=== PATIENT | female | born 1945 | race Caucasian/White ===

== ENCOUNTER 2022-01-28 05:31 | Observation (INO) | payer MEDICARE ==
[2022-01-28] MEDS ORDERED: Zofran 4 MG/2 ML VIAL IV ONE (05:55)
[2022-01-28] MEDS ORDERED: Sodium Chloride 0.9% 1000 ML 1,000 ML IV STA ×2 (05:55→06:30)
[2022-01-28] MEDS ORDERED: Sodium Chloride 0.9% 1000 ML 1,000 ML ONE ×2 (05:56→07:24)
[2022-01-28] MEDS ORDERED: Zofran 4 MG/2 ML VIAL ONE (05:56)
--- NOTE | 2022-01-28 06:07 | ERPHSYRPT ---
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 Indicates that the N/V has become worse through the night and now "I am dry heaving." C/O stomach cramping. Triage Nursing Assessment: Patient brought back to the ED in a wheelchair accompanied by her son. She is alert and oriented and answering questions appropriately. Bowel sounds present. No vomiting during assessment but patient was belching. Timing/Duration: yesterday Severity: moderate Modifying Factors: Improves With: movement Associated Symptoms: nausea, vomiting, abdominal pain, headaches, malaise Hx Tetanus, Diphtheria Vaccination/Date Given: Yes Hx Influenza Vaccination/Date Given: No (Last season) Hx Pneumococcal Vaccination/Date Given: Yes (12/01/11) Immunizations Up to Date: Yes <YAHIR DILL - Last Filed: 01/28/22 06:55> <CASANDRA MARTINEZ - Last Filed: 01/28/22 08:18> - History of Present Illness Time Seen by Provider: 01/28/22 06:03 Physician History: pt has N/V with lower abd pain - also myalgias and headache and dizziness like fainting not vertigo. no neuro deficits. abd without specific peritoneal signs or tenderness. ext with full ROM no increased pain. remote hx pancreatitis about 10 years ago and had ERCP - GB is out and does not drink ETOH. (YAHIR DILL) Allergies/Adverse Reactions: cefaclor [From Ceclor] Allergy (Unknown, Verified 01/28/22 05:33) swelling,rash amoxicillin [Amoxicillin] Allergy (Verified 01/28/22 05:33) swelling,rash Home Medications: Amitriptyline HCl 25 mg [Elavil 25 mg] 25 mg PO DAILY 06/09/12 [History] Duloxetine HCl [Cymbalta] 60 mg PO DAILY 06/09/12 [History] Pravastatin Sodium [Pravachol 20 MG] 20 mg PO DAILY 06/09/12 [History] Clopidogrel Bisulfate [PLAVIX 75 MG Tablet] 1 tab PO DAILY 09/13/14 [History] Dexlansoprazole [Dexilant] 1 tab PO DAILY 09/13/14 [History] Metoprolol Tartrate 25 mg [Lopressor 25MG Tab] 1 tab PO DAILY 09/13/14 [History] Nitroglycerin 0.4 mg (Ed) [Nitrostat 0.4 MG (ED)] 0.4 mg SL Q5MIN PRN MR X 3 PRN 12/05/20 [History] Ezetimibe 10 mg [Zetia 10 MG] 1 tab PO DAILY 01/28/22 [History] Travel Risk - International Travel Have you traveled outside of the country in past 3 weeks: No - Coronavirus Screening Are you exhibiting any of the following symptoms?: Yes Symptoms: Vomiting/Diarrhea, Headaches/Body Aches/Fatigue Close contact with a COVID-19 positive Pt in past 14-21 Days: No - Vaccine Status Have you recieved a Covid-19 vaccination: Yes 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 - Vaccination Dates Date of 2cond Vaccination (if applicable): 2020 <YAHIR DILL - Last Filed: 01/28/22 06:55> - Review of Systems Constitutional: No Fever, No Chills Eyes: No Symptoms Ears, Nose, & Throat: No Symptoms Respiratory: No Cough, No Dyspnea Cardiac: No Chest Pain, No Edema, No Syncope Abdominal/Gastrointestinal: Abdominal Pain, Nausea, Vomiting, No Diarrhea Genitourinary Symptoms: No Dysuria Musculoskeletal: No Back Pain, No Neck Pain, No Fall Skin: No Symptoms, No Rash Neurological: Dizziness, Headache, No Focal Weakness, No Sensory Changes Psychological: No Symptoms Endocrine: No Symptoms All Other Systems: Reviewed and Negative <YAHIR DILL - Last Filed: 01/28/22 06:55> - Past Medical History Pertinent Past Medical History: Yes Neurological History: No Pertinent History ENT History: No Pertinent History Cardiac History: High Cholesterol, Hypertension, Other Respiratory History: No Pertinent History Endocrine Medical History: No Pertinent History Musculoskeletal History: Fibromyalgia, Fractures GI Medical History: Esophageal Disorder, Hernia, Other History: No Pertinent History Psycho-Social History: Depression Female Reproductive Disorders: No Pertinent History Other Medical History: hiatal hernia. fractures: right wrist, shoulder, and ankle - Past Surgical History Past Surgical History: Yes Neuro Surgical History: No Pertinent History Cardiac: Cardiac Catheterization, Cardiac Stent Respiratory: No Pertinent History Gastrointestinal: Appendectomy, Cholecystectomy Genitourinary: No Pertinent History Musculoskeletal: Orthopedic Surgery Female Surgical History: Hysterectomy Other Surgical History: Right shoulder; rods and screws - Social History Smoking Status: Former smoker How long have you smoked: 15 Exposure to second hand smoke: No Drug Use: none Patient Lives Alone: No <YAHIR DILL Last Filed: 01/28/22 06:55> - Physical Exam General Appearance: no apparent distress, alert Eye Exam: PERRL/EOMI, eyes nml inspection Ears, Nose, Throat Exam: normal ENT inspection, TMs normal, pharynx normal, moist mucous membranes Neck Exam: normal inspection, non-tender, supple, full range of motion Respiratory Exam: normal breath sounds, lungs clear, No respiratory distress Cardiovascular Exam: regular rate/rhythm, normal heart sounds, normal peripheral pulses Gastrointestinal/Abdomen Exam: soft, normal bowel sounds, No tenderness, No mass Pelvic Exam: deferred Rectal Exam: deferred Back Exam: normal inspection, normal range of motion, No CVA tenderness, No vertebral tenderness Extremity Exam: normal inspection, normal range of motion, pelvis stable Neurologic Exam: alert, oriented x 3, cooperative, normal mood/affect, nml cerebellar function, nml station & gait, sensation nml, No motor deficits Skin Exam: normal color, warm, dry, No rash Lymphatic Exam: No adenopathy SpO2 Interpretation: normal SpO2: 99 O2 Delivery: Room Air <DILLJOSEFAYAHIR SAMUEL - Last Filed: 01/28/22 06:55> - Nursing Vital Signs Nursing Vital Signs: Initial Vital Signs Temperature 98 F 01/28/22 05:34 Pulse Rate 88 01/28/22 05:34 Respiratory Rate 20 01/28/22 05:34 Blood Pressure 129/69 01/28/22 05:34 O2 Sat by Pulse Oximetry 99 01/28/22 05:34 Pain Scale Pain Intensity 7 - Course Nursing assessment & vital signs reviewed: Yes EKG Interpreted by Me: Sinus Rhythm, Non-specific ST Changes, Other (ST depression) <YAHIR DILL - Last Filed: 01/28/22 06:55> Ordered Tests: Active Orders 24 hr Category Date Time Status EKG-ER Only STAT Care 01/28/22 06:08 Active IV Insertion STAT Care 01/28/22 06:08 Active ABDOMEN AND PELVIS W/0 CONTRAS [CT] Stat Exams 01/28/22 06:08 Completed HEAD WITHOUT CONTRAST [CT] Stat Exams 01/28/22 06:07 Completed AMYLASE Stat Lab 01/28/22 05:40 Completed CBC W DIFF Stat Lab 01/28/22 05:40 Completed CMP Stat Lab 01/28/22 05:40 Completed LIPASE Stat Lab 01/28/22 05:40 Completed Lactic Acid Stat Lab 01/28/22 06:28 Completed TROPONIN Q3H Lab 01/28/22 05:40 Completed TROPONIN Q3H Lab 01/28/22 09:15 Ordered TROPONIN Q3H Lab 01/28/22 12:15 Ordered TROPONIN Q3H Lab 01/28/22 15:15 Ordered TROPONIN Q3H Lab 01/28/22 18:15 Ordered UA W/RFX CULTURE Stat Lab 01/28/22 Ordered Medication Summary Discontinued Medications Generic Name Dose Route Start Last Admin Trade Name Freq PRN Reason Stop Dose Admin Diphenhydramine HCl Confirm 01/28/22 07:27 Diphenhydramine Hcl 50 Mg/Ml Vial Administered 01/28/22 07:28 Dose 50 mg .ROUTE .STK-MED ONE Diphenhydramine HCl 25 mg 01/28/22 07:29 01/28/22 07:30 Diphenhydramine Hcl 50 Mg/Ml Vial IV 01/28/22 07:30 25 mg STAT ONE Administration Famotidine 20 mg 01/28/22 06:08 01/28/22 06:17 Famotidine 20 Mg/1 Vial IV 01/28/22 06:09 20 mg STAT ONE Administration Famotidine Confirm 01/28/22 06:16 Famotidine 20 Mg/1 Vial Administered 01/28/22 06:17 Dose 20 mg IV .STK-MED ONE Sodium Chloride 1,000 mls @ 999 mls/hr 01/28/22 05:55 01/28/22 07:20 Sodium Chloride 0.9% 1000 Ml IV 01/28/22 06:55 Infused .Q1H1M STA Infusion Sodium Chloride Confirm 01/28/22 05:56 Sodium Chloride 0.9% 1000 Ml Administered 01/28/22 05:57 Dose 1,000 mls @ ud .ROUTE .STK-MED ONE Sodium Chloride 1,000 mls @ 999 mls/hr 01/28/22 06:30 01/28/22 07:31 Sodium Chloride 0.9% 1000 Ml IV 01/28/22 07:30 999 mls/hr .Q1H1M STA Administration Sodium Chloride Confirm 01/28/22 07:24 Sodium Chloride 0.9% 1000 Ml Administered 01/28/22 07:25 Dose 1,000 mls @ ud .ROUTE .STK-MED ONE Metoclopramide HCl Confirm 01/28/22 07:27 Metoclopramide Hcl 10 Mg/2 Ml Vial Administered 01/28/22 07:28 Dose 10 mg .ROUTE .STK-MED ONE Metoclopramide HCl 10 mg 01/28/22 07:29 01/28/22 07:30 Metoclopramide Hcl 10 Mg/2 Ml Vial IV 01/28/22 07:30 10 mg STAT ONE Administration Morphine Sulfate 4 mg 01/28/22 06:11 01/28/22 06:17 Morphine Sulfate 4 Mg/Ml Injection IV 01/28/22 06:12 4 mg STAT ONE Administration Morphine Sulfate Confirm 01/28/22 06:16 Morphine Sulfate 4 Mg/Ml Injection Administered 01/28/22 06:17 Dose 4 mg .ROUTE .STK-MED ONE Morphine Sulfate Confirm 01/28/22 07:24 Morphine Sulfate 4 Mg/Ml Injection Administered 01/28/22 07:25 Dose 4 mg .ROUTE .STK-MED ONE Ondansetron HCl 4 mg 01/28/22 05:55 01/28/22 05:56 Ondansetron Hcl 4 Mg/2 Ml Vial IV 01/28/22 05:56 4 mg STAT ONE Administration Ondansetron HCl Confirm 01/28/22 05:56 Ondansetron Hcl 4 Mg/2 Ml Vial Administered 01/28/22 05:57 Dose 4 mg .ROUTE .STK-MED ONE Pantoprazole Sodium 40 mg 01/28/22 06:08 01/28/22 06:17 Pantoprazole 40 Mg Vial IV 01/28/22 06:09 40 mg STAT ONE Administration Pantoprazole Sodium Confirm 01/28/22 06:16 Pantoprazole 40 Mg Vial Administered 01/28/22 06:17 Dose 40 mg IV .STK-MED ONE Lab/Rad Data: Laboratory Result Diagrams 01/28/22 05:40 01/28/22 05:40 Laboratory Results 01/28/22 01/28/22 01/28/22 Range/Units 06:28 06:20 05:40 WBC (4.0-10.5) x10^3/uL RBC (4.1-5.4) x10^6/uL Hgb (12.0-16.0) g/dL Hct (35-47) % MCV (78-100) fL MCH (26-32) pg MCHC (32-36) g/dL RDW (11.5-14.0) % Plt Count (150-450) x10^3/uL MPV (7.5-11.0) fL Gran % (36.0-66.0) % Immature Gran % (Auto) (0.00-0.4) % Nucleat RBC Rel Count (0.00-0.1) % Eos # (Auto) (0-0.5) x10^3/uL Immature Gran # (Auto) (0.00-0.03) x10^3u/L Absolute Lymphs (auto) (1.0-4.6) x10^3/uL Absolute Monos (auto) (0.0-1.3) x10^3/uL Absolute Nucleated RBC (0.00-0.01) x10^3u/L Lymphocytes % (24.0-44.0) % Monocytes % (0.0-12.0) % Eosinophils % (0.00-5.0) % Basophils % (0.0-0.4) % Absolute Granulocytes (1.4-6.9) x10^3/uL Basophils # (0-0.4) x10^3/uL Sodium (137-145) mmol/L Potassium (3.5-5.1) mmol/L Chloride (98-107) mmol/L Carbon Dioxide (22-30) mmol/L Anion Gap (5-15) MEQ/L BUN (7-17) mg/dL Creatinine (0.52-1.04) mg/dL Estimated GFR ML/MIN Glucose (74-106) mg/dL Lactic Acid 2.8 H (0.4-2.0) Calcium (8.4-10.2) mg/dL Total Bilirubin (0.2-1.3) mg/dL AST (14-36) U/L ALT (0-35) U/L Alkaline Phosphatase (38-126) U/L Troponin I < 0.012 (0.000-0.034) ng/mL Serum Total Protein (6.3-8.2) g/dL Albumin (3.5-5.0) g/dL Amylase (30-110) U/L Lipase (23-300) U/L Influenza Type A Ag NEGATIVE (NEGATIVE) Influenza Type B Ag NEGATIVE (NEGATIVE) RSV (PCR) NEGATIVE (Negative) SARS-CoV-2 (PCR) NEGATIVE (NEGATIVE) 01/28/22 01/28/22 Range/Units 05:40 05:40 WBC 7.5 (4.0-10.5) x10^3/uL RBC 4.60 (4.1-5.4) x10^6/uL Hgb 13.2 (12.0-16.0) g/dL Hct 40.1 (35-47) % MCV 87.2 (78-100) fL MCH 28.7 (26-32) pg MCHC 32.9 (32-36) g/dL RDW 14.5 H (11.5-14.0) % Plt Count 196 (150-450) x10^3/uL MPV 12.2 H (7.5-11.0) fL Gran % 78.7 H (36.0-66.0) % Immature Gran % (Auto) 0.3 (0.00-0.4) % Nucleat RBC Rel Count 0.0 (0.00-0.1) % Eos # (Auto) 0.04 (0-0.5) x10^3/uL Immature Gran # (Auto) 0.02 (0.00-0.03) x10^3u/L Absolute Lymphs (auto) 1.13 (1.0-4.6) x10^3/uL Absolute Monos (auto) 0.40 (0.0-1.3) x10^3/uL Absolute Nucleated RBC 0.00 (0.00-0.01) x10^3u/L Lymphocytes % 15.1 L (24.0-44.0) % Monocytes % 5.3 (0.0-12.0) % Eosinophils % 0.5 (0.00-5.0) % Basophils % 0.1 (0.0-0.4) % Absolute Granulocytes 5.89 (1.4-6.9) x10^3/uL Basophils # 0.01 (0-0.4) x10^3/uL Sodium 138 (137-145) mmol/L Potassium 4.2 (3.5-5.1) mmol/L Chloride 103 (98-107) mmol/L Carbon Dioxide 23 (22-30) mmol/L Anion Gap 15.9 H (5-15) MEQ/L BUN 17 (7-17) mg/dL Creatinine 0.63 (0.52-1.04) mg/dL Estimated GFR > 60.0 ML/MIN Glucose 118 H (74-106) mg/dL Lactic Acid (0.4-2.0) Calcium 8.9 (8.4-10.2) mg/dL Total Bilirubin 0.50 (0.2-1.3) mg/dL AST 36 (14-36) U/L ALT 21 (0-35) U/L Alkaline Phosphatase 122 (38-126) U/L Troponin I (0.000-0.034) ng/mL Serum Total Protein 7.1 (6.3-8.2) g/dL Albumin 4.2 (3.5-5.0) g/dL Amylase 60 (30-110) U/L Lipase 1378 H (23-300) U/L Influenza Type A Ag (NEGATIVE) Influenza Type B Ag (NEGATIVE) RSV (PCR) (Negative) SARS-CoV-2 (PCR) (NEGATIVE) - Progress Progress: improved, re-examined Counseled pt/family regarding: lab results, diagnosis, need for follow-up, rad results <YAHIR DILL - Last Filed: 01/28/22 06:55> <CASANDRA MARTINEZ - Last Filed: 01/28/22 08:18> - Progress Progress Note: 01/28/22 06:47 turned pt over to Dr. Martinez at change of shift after discussion of pending studies for final dispositon and Tx. (YAHIR DILL) 01/28/22 08:16 Patient checked out to me at shift change from Dr. Haynes with pending CT abdomen pelvis. Patient presented with abdominal pain nausea vomiting. She is given fluids and symptomatic treatment, on my evaluation patient is feeling better with less pain but still nauseated. I have given her Reglan and continue with fluids. She has elevated lipase but CT negative for acute pancreatitis. She does have a large hiatal hernia and will give Protonix. Patient was dizzy because of repeated vomiting and CT head is obtained to make sure patient does not have any acute intracranial pathology and is negative. Discussed with Dr. Webster and patient is admitted for observation. (CASANDRA MARTINEZ) <YAHIR DILL - Last Filed: 01/28/22 06:55> - Departure Departure Disposition: Observation Critical Care Time: No <CASANDRA MARTINEZ - Last Filed: 01/28/22 08:18> - Departure Clinical Impression: Acute pancreatitis Condition: Stable Referrals: JENNIFER HEREDIA, ACCOUNTANT [[employer] PROFESSION STAFF] - Follow up/PCP as dir ected
[2022-01-28] MEDS ORDERED: PROTONIX 40 MG IV IV ONE ×2 (06:08→06:16)
[2022-01-28] MEDS ORDERED: Pepcid 20 MG VIAL IV ONE ×2 (06:08→06:16)
[2022-01-28] MEDS ORDERED: MORPHINE SULFATE 4 MG INJ IV ONE (06:11)
[2022-01-28] MEDS ORDERED: MORPHINE SULFATE 4 MG INJ ONE ×2 (06:16→07:24)
[2022-01-28 06:18] LABS: Absolute Neutrophil Ct (ANC) 5.89 x10^3/uL (1.4-6.9); Basophil (Absolute #) 0.01 x10^3/uL (0-0.4); Eosinophil % 0.5 % (0.00-5.0); Eosinophil (Absolute #) 0.04 x10^3/uL (0-0.5); Hematocrit 40.1 % (35-47); Hemoglobin 13.2 g/dL (12.0-16.0); Lymphocyte (Absolute #) 1.13 x10^3/uL (1.0-4.6); Lymphocytes % 15.1 % (24.0-44.0); Mean Cell Volume 87.2 fL (78-100); Mean Corpuscular Hemoglobin 28.7 pg (26-32); Mean Corpuscular Hgb Concent. 32.9 g/dL (32-36); Mean Platelet Volume 12.2 fL (7.5-11.0); Monocytes % 5.3 % (0.0-12.0); Neutrophil % 78.7 % (36.0-66.0); Platelet Count 196 x10^3/uL (150-450); Red Cell Distribution Width 14.5 % (11.5-14.0); White Blood Count 7.5 x10^3/uL (4.0-10.5)
[2022-01-28 06:30] LABS: ALBUMIN 4.2 g/dL (3.5-5.0); ALKALINE PHOSPHATASE 122 U/L (38-126); AMYLASE 60 U/L (30-110); ANION GAP 15.9 MEQ/L (5-15); BLOOD UREA NITROGEN 17 mg/dL (7-17); CHLORIDE 103 mmol/L (98-107); Calcium 8.9 mg/dL (8.4-10.2); Carbon Dioxide 23 mmol/L (22-30); Creatinine 1 0.63 mg/dL (0.52-1.04); EST GLOMERULAR FILTRATION RATE > 60.0 ML/MIN; Glucose 118 mg/dL (74-106); LIPASE 1378 U/L (23-300); Potassium 4.2 mmol/L (3.5-5.1); SGOT/AST 36 U/L (14-36); SGPT/ALT 21 U/L (0-35); SODIUM 138 mmol/L (137-145); Total Protein 7.1 g/dL (6.3-8.2)
[2022-01-28 07:15] LABS: INFLUENZA A NEGATIVE (NEGATIVE); INFLUENZA B NEGATIVE (NEGATIVE); RESPIRATORY SYNCTIAL VIRUS NEGATIVE (Negative); SARS-CoV-2 Xpert Express NEGATIVE (NEGATIVE)
[2022-01-28] MEDS ORDERED: BENADRYL 50 MG/ML ONE (07:27)
[2022-01-28] MEDS ORDERED: Reglan 10 MG/2 ML ONE (07:27)
[2022-01-28] MEDS ORDERED: BENADRYL 50 MG/ML IV ONE (07:29)
[2022-01-28] MEDS ORDERED: Reglan 10 MG/2 ML IV ONE (07:29)
--- NOTE | 2022-01-28 08:10 | XRAY ---
Indication: Headache, nausea, and vomiting. Multiple contiguous axial images obtained through the head without contrast. Comparison: None Age appropriate global atrophy. No acute intracranial hemorrhage, abnormal extra-axial fluid collection, or mass effect. Fourth ventricle is midline without hydrocephalus. Bony calvarium intact. Visualized paranasal sinuses and mastoid air cells are clear. Impression: Negative CT head without contrast exam. Comment: Preliminary interpretation made by [facility]. No critical discrepancy.
--- NOTE | 2022-01-28 08:14 | XRAY ---
Indication: Abdomen pain. Headache, nausea, and vomiting. Multiple contiguous axial images obtained through the abdomen and pelvis without contrast. Comparison: None Lung bases demonstrates a few tiny calcified granulomas. No infiltrate or effusion. Heart not enlarged. Large hiatal hernia with fluid distended partial intrathoracic stomach. Noncontrasted stomach and bowel loops appear nonobstructed. Transverse duodenum demonstrates a 2 cm diverticulum. Mild diffuse scattered colonic fecal debris. Appendectomy, cholecystectomy, and hysterectomy reported. No free fluid/air. Tiny hepatic/splenic calcified granulomas and 3 cm right upper pole renal cyst. Remaining liver, pancreas, spleen, adrenal glands, kidneys, ureters, and bladder are unremarkable for noncontrast exam. Mild scattered aortoiliac calcifications without AAA. Osseous structures intact with mild osteopenia, minimal/mild multilevel degenerative spondylosis greatest L5-S1, and bilateral L5 spondylolysis with 5-6 mm spondylolisthesis. Impression: 1. Large hiatal hernia with fluid distended partial intrathoracic stomach. 2. Mild diffuse fecal stasis. 3. Incidental right renal cyst, duodenal diverticulum, chronic bony findings, and old granulomatous disease. Comment: Preliminary interpretation may by [facility]. No critical discrepancy.
[2022-01-28] MEDS ORDERED: MORPHINE SULFATE 2 MG INJ IV PRN (08:45)
[2022-01-28] MEDS ORDERED: DUONEB 0.5-3 MG/3 ml Neb IH PRN (08:45)
[2022-01-28] MEDS ORDERED: TYLENOL 325 MG PO PRN (10:00)
[2022-01-28] MEDS ORDERED: PROTONIX 40 MG IV IV SCH (10:00)
[2022-01-28] MEDS: Zofran 4 MG/2 ML VIAL IV PRN ×3 (10:01→22:55)
[2022-01-28] MEDS ORDERED: Nitrostat 0.4 MG (ED) SL PRN (10:03)
[2022-01-28] MEDS ORDERED: Nitrostat 0.4 MG Tablet SL PRN (10:07)
[2022-01-28] MEDS: Lopressor 25MG Tab PO SCH ×2 (11:34→21:13)
[2022-01-28] MEDS: Protonix 40MG Tablet PO SCH (11:34)
[2022-01-28] MEDS: TORAdol 30 mg Injection IM PRN ×2 (12:27→18:27)
[2022-01-28] MEDS: Sodium Chloride 0.9% 1000 ML 1,000 ML IV SCH ×2 (12:36→20:17)
[2022-01-28 13:30] LABS: Appearance CLEAR (CLEAR); Bilirubin NEGATIVE (NEGATIVE); Glucose NEGATIVE (NEGATIVE); Ketones SMALL-15 (NEGATIVE)
[2022-01-28 13:31] LABS: Nitrite NEGATIVE (NEGATIVE); Protein,Urine Dip NEGATIVE (Negative); RBC NEGATIVE Ery/ul (0-5); Urobilinogen 0.2 mg/dL (0-1)
[2022-01-28 13:32] LABS: Epithelial Cells RARE /HPF (FEW); Mucus SLIGHT /HPF (NEGATIVE); RBC 0-2 /HPF (0-2); WBC 0-2 /HPF (0-5)
[2022-01-28 13:34] LABS: Dipstick done @ ? MAIN LAB; Urine Cultured Indicated? NO
[2022-01-28] MEDS ORDERED: Cymbalta 30 MG Capsule PO SCH (22:00)
[2022-01-28] MEDS ORDERED: AMITRIPTYLINE 25 MG TABLET PO SCH (22:00)
[2022-01-28] MEDS ORDERED: NON-FORMULARY ITEM (Duloxetine Hcl [Cymbalta] 60 MG Capsule.Dr) PO SCH (22:00)
[2022-01-28] MEDS ORDERED: ZOCOR 20MG PO SCH (22:00)
[2022-01-28] MEDS ORDERED: Zetia 10 MG PO SCH (22:00)
[2022-01-28] MEDS ORDERED: PRAVASTATIN SODIUM 20 MG PO SCH (22:00)
--- NOTE | 2022-01-28 22:33 | PCM.HP ---
History of Present Illness - Chief Complaint Chief Complaint: acute pancreatitis History of Present Illness: is a 76 year old female who presented to ER with upper abdominal pain, nausea and vomiting. Admitted to Dr Miller with Dg acute pancreatitis and large Hiatal hernia. Is S/P Cholecystectomy and appendectomy .CT head was done because of headache which was unremarkable. PMHx includes HTN,HLD ,CAD ,S/P stents 5-7 years ago. [employer]ac[employer] Worker is Dr Perales. - Review of Systems Constitutional: Malaise Eyes: No Symptoms Ears, Nose, & Throat: No Symptoms Respiratory: No Symptoms Cardiac: No Symptoms Abdominal/Gastrointestinal: Abdominal Pain (epigatrium), Nausea, Vomiting Genitourinary Symptoms: No Symptoms Musculoskeletal: No Symptoms Skin: No Symptoms Neurological: No Symptoms Medications & Allergies Home Medications: Home Medication List Amitriptyline HCl 25 mg [Elavil 25 mg] 25 mg PO HS 06/09/12 [History Confirmed 01/28/22] Duloxetine HCl [Cymbalta] 60 mg PO HS 06/09/12 [History Confirmed 01/28/22] Pravastatin Sodium [Pravachol 20 MG] 20 mg PO HS 06/09/12 [History Confirmed 01/28/22] Clopidogrel Bisulfate [PLAVIX 75 MG Tablet] 1 tab PO UD 09/13/14 [History Confirmed 01/28/22] Dexlansoprazole [Dexilant] 1 tab PO DAILY 09/13/14 [History Confirmed 01/28/22] Metoprolol Tartrate 25 mg [Lopressor 25MG Tab] 1 tab PO BID 09/13/14 [History Confirmed 01/28/22] Nitroglycerin 0.4 mg (Ed) [Nitrostat 0.4 MG (ED)] 0.4 mg SL Q5MIN PRN MR X 3 PRN 12/05/20 [History Confirmed 01/28/22] Ezetimibe 10 mg [Zetia 10 MG] 1 tab PO HS 01/28/22 [History Confirmed 01/28/22] Allergies/Adverse Reactions: Allergies Allergy/AdvReac Type Severity Reaction Status Date / Time cefaclor [From Ceclor] Allergy Unknown Verified 01/28/22 05:33 amoxicillin [Amoxicillin] Allergy Verified 01/28/22 05:33 hydromorphone [From Dilaudid] Allergy Verified 01/28/22 08:49 - Past Medical History Past Medical History: Yes Neurological History: No Pertinent History ENT History: No Pertinent History Cardiac History: High Cholesterol, Hypertension, Other Respiratory History: No Pertinent History Endocrine Medical History: No Pertinent History Musculoskelatal History: Fibromyalgia GI Medical History: Esophageal Disorder, Hernia, Other History: No Pertinent History Pyscho-Social History: No Pertinent History Reproductive Disorders: No Pertinent History Comment: hiatal hernia - Female History Are you now?: No - Past Surgical History Past Surgical History: Yes Neuro Surgical History: No Pertinent History Cardiac History: Cardiac Catheterization, Cardiac Stent Respiratory Surgery: No Pertinent History GI Surgical History: Appendectomy, Cholecystectomy Genitourinary Surgical Hx: No Pertinent History Musculskeletal Surgical Hx: Orthopedic Surgery Female Surgical History: Hysterectomy Other Surgical History: Right shoulder; rods and screws - Social History Smoking Status: Former smoker How long have you smoked: 15 Exposure to second hand smoke: No Alcohol: None Drug Use: none - Physical Exam Vital Signs: Vital Signs - 24 hr Temp Pulse Resp BP Pulse Ox 01/28/22 19:35 98.2 F 68 16 110/53 97 01/28/22 19:05 94 L 01/28/22 16:00 97.9 F 66 16 101/51 97 01/28/22 12:00 98.1 F 85 16 101/53 98 01/28/22 09:30 97 01/28/22 09:21 98.9 F 85 16 143/73 98 01/28/22 08:45 98.9 F 85 16 143/73 98 01/28/22 08:24 91 H 160/63 92 L 01/28/22 07:00 99 01/28/22 05:34 98 F 88 20 129/69 99 General Appearance: mild distress (nausea), alert Neurologic Exam: oriented x 3, cooperative, normal mood/affect Eye Exam: eyes nml inspection Ears, Nose, Throat Exam: normal ENT inspection Neck Exam: normal inspection Respiratory Exam: normal breath sounds Cardiovascular Exam: regular rate/rhythm Pelvic Exam: not done Rectal Exam: not done Back Exam: normal inspection Extremity Exam: normal inspection Skin Exam: warm, dry, pale Results - Labs Lab/Micro Results: Lab Results-Last 24 Hours 01/28/22 01/28/22 01/28/22 Range/Units 05:40 05:40 05:40 WBC 7.5 (4.0-10.5) x10^3/uL RBC 4.60 (4.1-5.4) x10^6/uL Hgb 13.2 (12.0-16.0) g/dL Hct 40.1 (35-47) % MCV 87.2 (78-100) fL MCH 28.7 (26-32) pg MCHC 32.9 (32-36) g/dL RDW 14.5 H (11.5-14.0) % Plt Count 196 (150-450) x10^3/uL MPV 12.2 H (7.5-11.0) fL Gran % 78.7 H (36.0-66.0) % Immature Gran % (Auto) 0.3 (0.00-0.4) % Nucleat RBC Rel Count 0.0 (0.00-0.1) % Eos # (Auto) 0.04 (0-0.5) x10^3/uL Immature Gran # (Auto) 0.02 (0.00-0.03) x10^3u/L Absolute Lymphs (auto) 1.13 (1.0-4.6) x10^3/uL Absolute Monos (auto) 0.40 (0.0-1.3) x10^3/uL Absolute Nucleated RBC 0.00 (0.00-0.01) x10^3u/L Lymphocytes % 15.1 L (24.0-44.0) % Monocytes % 5.3 (0.0-12.0) % Eosinophils % 0.5 (0.00-5.0) % Basophils % 0.1 (0.0-0.4) % Absolute Granulocytes 5.89 (1.4-6.9) x10^3/uL Basophils # 0.01 (0-0.4) x10^3/uL Sodium 138 (137-145) mmol/L Potassium 4.2 (3.5-5.1) mmol/L Chloride 103 (98-107) mmol/L Carbon Dioxide 23 (22-30) mmol/L Anion Gap 15.9 H (5-15) MEQ/L BUN 17 (7-17) mg/dL Creatinine 0.63 (0.52-1.04) mg/dL Estimated GFR > 60.0 ML/MIN Glucose 118 H (74-106) mg/dL Lactic Acid (0.4-2.0) Calcium 8.9 (8.4-10.2) mg/dL Total Bilirubin 0.50 (0.2-1.3) mg/dL AST 36 (14-36) U/L ALT 21 (0-35) U/L Alkaline Phosphatase 122 (38-126) U/L Troponin I < 0.012 (0.000-0.034) ng/mL Serum Total Protein 7.1 (6.3-8.2) g/dL Albumin 4.2 (3.5-5.0) g/dL Amylase 60 (30-110) U/L Lipase 1378 H (23-300) U/L Urinalys Dipstick Clnc Urine Color (YELLOW) Urine Appearance (CLEAR) Urine pH (5-6) Ur Specific Winder (1.005-1.025) POC Urine Protein Conf (Negative) Urine Ketones (NEGATIVE) Urine Nitrite (NEGATIVE) Urine Bilirubin (NEGATIVE) Urine Urobilinogen (0-1) mg/dL Urine Leukocytes (NEGATIVE) Urine WBC (Auto) (0-5) /HPF Urine RBC (Auto) (0-2) /HPF U Epithel Cells (Auto) (FEW) /HPF Urine Bacteria (Auto) (NEGATIVE) /HPF Urine RBC (0-5) Renny/ul Urine Mucus (Auto) (NEGATIVE) /HPF Ur Culture Indicated? Urine Glucose (NEGATIVE) mg/dL Influenza Type A Ag (NEGATIVE) Influenza Type B Ag (NEGATIVE) RSV (PCR) (Negative) SARS-CoV-2 (PCR) (NEGATIVE) 01/28/22 01/28/22 01/28/22 Range/Units 06:20 06:28 08:33 WBC (4.0-10.5) x10^3/uL RBC (4.1-5.4) x10^6/uL Hgb (12.0-16.0) g/dL Hct (35-47) % MCV (78-100) fL MCH (26-32) pg MCHC (32-36) g/dL RDW (11.5-14.0) % Plt Count (150-450) x10^3/uL MPV (7.5-11.0) fL Gran % (36.0-66.0) % Immature Gran % (Auto) (0.00-0.4) % Nucleat RBC Rel Count (0.00-0.1) % Eos # (Auto) (0-0.5) x10^3/uL Immature Gran # (Auto) (0.00-0.03) x10^3u/L Absolute Lymphs (auto) (1.0-4.6) x10^3/uL Absolute Monos (auto) (0.0-1.3) x10^3/uL Absolute Nucleated RBC (0.00-0.01) x10^3u/L Lymphocytes % (24.0-44.0) % Monocytes % (0.0-12.0) % Eosinophils % (0.00-5.0) % Basophils % (0.0-0.4) % Absolute Granulocytes (1.4-6.9) x10^3/uL Basophils # (0-0.4) x10^3/uL Sodium (137-145) mmol/L Potassium (3.5-5.1) mmol/L Chloride (98-107) mmol/L Carbon Dioxide (22-30) mmol/L Anion Gap (5-15) MEQ/L BUN (7-17) mg/dL Creatinine (0.52-1.04) mg/dL Estimated GFR ML/MIN Glucose (74-106) mg/dL Lactic Acid 2.8 H 1.9 (0.4-2.0) Calcium (8.4-10.2) mg/dL Total Bilirubin (0.2-1.3) mg/dL AST (14-36) U/L ALT (0-35) U/L Alkaline Phosphatase (38-126) U/L Troponin I (0.000-0.034) ng/mL Serum Total Protein (6.3-8.2) g/dL Albumin (3.5-5.0) g/dL Amylase (30-110) U/L Lipase (23-300) U/L Urinalys Dipstick Clnc Urine Color (YELLOW) Urine Appearance (CLEAR) Urine pH (5-6) Ur Specific Winder (1.005-1.025) POC Urine Protein Conf (Negative) Urine Ketones (NEGATIVE) Urine Nitrite (NEGATIVE) Urine Bilirubin (NEGATIVE) Urine Urobilinogen (0-1) mg/dL Urine Leukocytes (NEGATIVE) Urine WBC (Auto) (0-5) /HPF Urine RBC (Auto) (0-2) /HPF U Epithel Cells (Auto) (FEW) /HPF Urine Bacteria (Auto) (NEGATIVE) /HPF Urine RBC (0-5) Renny/ul Urine Mucus (Auto) (NEGATIVE) /HPF Ur Culture Indicated? Urine Glucose (NEGATIVE) mg/dL Influenza Type A Ag NEGATIVE (NEGATIVE) Influenza Type B Ag NEGATIVE (NEGATIVE) RSV (PCR) NEGATIVE (Negative) SARS-CoV-2 (PCR) NEGATIVE (NEGATIVE) 01/28/22 01/28/22 01/28/22 Range/Units 09:15 12:20 15:05 WBC (4.0-10.5) x10^3/uL RBC (4.1-5.4) x10^6/uL Hgb (12.0-16.0) g/dL Hct (35-47) % MCV (78-100) fL MCH (26-32) pg MCHC (32-36) g/dL RDW (11.5-14.0) % Plt Count (150-450) x10^3/uL MPV (7.5-11.0) fL Gran % (36.0-66.0) % Immature Gran % (Auto) (0.00-0.4) % Nucleat RBC Rel Count (0.00-0.1) % Eos # (Auto) (0-0.5) x10^3/uL Immature Gran # (Auto) (0.00-0.03) x10^3u/L Absolute Lymphs (auto) (1.0-4.6) x10^3/uL Absolute Monos (auto) (0.0-1.3) x10^3/uL Absolute Nucleated RBC (0.00-0.01) x10^3u/L Lymphocytes % (24.0-44.0) % Monocytes % (0.0-12.0) % Eosinophils % (0.00-5.0) % Basophils % (0.0-0.4) % Absolute Granulocytes (1.4-6.9) x10^3/uL Basophils # (0-0.4) x10^3/uL Sodium (137-145) mmol/L Potassium (3.5-5.1) mmol/L Chloride (98-107) mmol/L Carbon Dioxide (22-30) mmol/L Anion Gap (5-15) MEQ/L BUN (7-17) mg/dL Creatinine (0.52-1.04) mg/dL Estimated GFR ML/MIN Glucose (74-106) mg/dL Lactic Acid (0.4-2.0) Calcium (8.4-10.2) mg/dL Total Bilirubin (0.2-1.3) mg/dL AST (14-36) U/L ALT (0-35) U/L Alkaline Phosphatase (38-126) U/L Troponin I < 0.012 < 0.012 < 0.012 (0.000-0.034) ng/mL Serum Total Protein (6.3-8.2) g/dL Albumin (3.5-5.0) g/dL Amylase (30-110) U/L Lipase (23-300) U/L Urinalys Dipstick Clnc Urine Color (YELLOW) Urine Appearance (CLEAR) Urine pH (5-6) Ur Specific Winder (1.005-1.025) POC Urine Protein Conf (Negative) Urine Ketones (NEGATIVE) Urine Nitrite (NEGATIVE) Urine Bilirubin (NEGATIVE) Urine Urobilinogen (0-1) mg/dL Urine Leukocytes (NEGATIVE) Urine WBC (Auto) (0-5) /HPF Urine RBC (Auto) (0-2) /HPF U Epithel Cells (Auto) (FEW) /HPF Urine Bacteria (Auto) (NEGATIVE) /HPF Urine RBC (0-5) Renny/ul Urine Mucus (Auto) (NEGATIVE) /HPF Ur Culture Indicated? Urine Glucose (NEGATIVE) mg/dL Influenza Type A Ag (NEGATIVE) Influenza Type B Ag (NEGATIVE) RSV (PCR) (Negative) SARS-CoV-2 (PCR) (NEGATIVE) 01/28/22 01/28/22 Range/Units 18:15 Unknown WBC (4.0-10.5) x10^3/uL RBC (4.1-5.4) x10^6/uL Hgb (12.0-16.0) g/dL Hct (35-47) % MCV (78-100) fL MCH (26-32) pg MCHC (32-36) g/dL RDW (11.5-14.0) % Plt Count (150-450) x10^3/uL MPV (7.5-11.0) fL Gran % (36.0-66.0) % Immature Gran % (Auto) (0.00-0.4) % Nucleat RBC Rel Count (0.00-0.1) % Eos # (Auto) (0-0.5) x10^3/uL Immature Gran # (Auto) (0.00-0.03) x10^3u/L Absolute Lymphs (auto) (1.0-4.6) x10^3/uL Absolute Monos (auto) (0.0-1.3) x10^3/uL Absolute Nucleated RBC (0.00-0.01) x10^3u/L Lymphocytes % (24.0-44.0) % Monocytes % (0.0-12.0) % Eosinophils % (0.00-5.0) % Basophils % (0.0-0.4) % Absolute Granulocytes (1.4-6.9) x10^3/uL Basophils # (0-0.4) x10^3/uL Sodium (137-145) mmol/L Potassium (3.5-5.1) mmol/L Chloride (98-107) mmol/L Carbon Dioxide (22-30) mmol/L Anion Gap (5-15) MEQ/L BUN (7-17) mg/dL Creatinine (0.52-1.04) mg/dL Estimated GFR ML/MIN Glucose (74-106) mg/dL Lactic Acid (0.4-2.0) Calcium (8.4-10.2) mg/dL Total Bilirubin (0.2-1.3) mg/dL AST (14-36) U/L ALT (0-35) U/L Alkaline Phosphatase (38-126) U/L Troponin I < 0.012 (0.000-0.034) ng/mL Serum Total Protein (6.3-8.2) g/dL Albumin (3.5-5.0) g/dL Amylase (30-110) U/L Lipase (23-300) U/L Urinalys Dipstick Clnc MAIN LAB Urine Color YELLOW (YELLOW) Urine Appearance CLEAR (CLEAR) Urine pH 7.0 (5-6) Ur Specific Winder 1.020 (1.005-1.025) POC Urine Protein Conf NEGATIVE (Negative) Urine Ketones SMALL-15 (NEGATIVE) Urine Nitrite NEGATIVE (NEGATIVE) Urine Bilirubin NEGATIVE (NEGATIVE) Urine Urobilinogen 0.2 (0-1) mg/dL Urine Leukocytes NEGATIVE (NEGATIVE) Urine WBC (Auto) 0-2 (0-5) /HPF Urine RBC (Auto) 0-2 (0-2) /HPF U Epithel Cells (Auto) RARE (FEW) /HPF Urine Bacteria (Auto) NONE (NEGATIVE) /HPF Urine RBC NEGATIVE (0-5) Renny/ul Urine Mucus (Auto) SLIGHT (NEGATIVE) /HPF Ur Culture Indicated? NO Urine Glucose NEGATIVE (NEGATIVE) mg/dL Influenza Type A Ag (NEGATIVE) Influenza Type B Ag (NEGATIVE) RSV (PCR) (Negative) SARS-CoV-2 (PCR) (NEGATIVE) - Radiology Impressions Radiology Exams & Impressions: Radiology Procedures Category Date Time Status ABDOMEN AND PELVIS W/0 CONTRAS [CT] Stat Exams 01/28/22 06:08 Completed HEAD WITHOUT CONTRAST [CT] Stat Exams 01/28/22 06:07 Completed - Other Procedures and Tests Respiratory Therapy 01/28/22 08:45 Oxygen Nasal Cannula 2 lpm Assessment/Plan (1) Acute pancreatitis Current Visit: Yes Status: Acute Qualifiers: Pancreatitis type: unspecified pancreatitis type Assessment & Plan: bowel rest ,IV fluids Code(s): K85.90 - ACUTE PANCREATITIS WITHOUT NECROSIS OR INFECTION, UNSP (2) Hiatal hernia Current Visit: Yes Status: Chronic Assessment & Plan: large hiatal hernia per CT Code(s): K44.9 - DIAPHRAGMATIC HERNIA WITHOUT OBSTRUCTION OR GANGRENE (3) HTN (hypertension) Current Visit: Yes Status: Chronic Assessment & Plan: monitor Code(s): I10 - ESSENTIAL (PRIMARY) HYPERTENSION (4) CAD (coronary artery disease) Current Visit: Yes Status: Chronic Assessment & Plan: remote Hx stents Code(s): I25.10 - ATHSCL HEART DISEASE OF [place] CORONARY ARTERY W/O ANG PCTRS
[2022-01-29] MEDS: TORAdol 30 mg Injection IM PRN (04:10)
[2022-01-29] MEDS: Sodium Chloride 0.9% 1000 ML 1,000 ML IV SCH (04:19)
[2022-01-29] MEDS ORDERED: TORAdol 30 mg Injection IM PRN (04:49)
[2022-01-29 05:22] LABS: Absolute Neutrophil Ct (ANC) 1.32 x10^3/uL (1.4-6.9); Basophil (Absolute #) 0.01 x10^3/uL (0-0.4); Eosinophil % 0.8 % (0.00-5.0); Eosinophil (Absolute #) 0.02 x10^3/uL (0-0.5); Hematocrit 31.3 % (35-47); Hemoglobin 9.7 g/dL (12.0-16.0); Lymphocyte (Absolute #) 0.86 x10^3/uL (1.0-4.6); Lymphocytes % 32.3 % (24.0-44.0); Mean Cell Volume 90.2 fL (78-100); Monocyte (Absolute #) 0.44 x10^3/uL (0.0-1.3); Monocytes % 16.5 % (0.0-12.0); Neutrophil % 49.6 % (36.0-66.0); Platelet Count 136 x10^3/uL (150-450); Red Blood Count 3.47 x10^6/uL (4.1-5.4); White Blood Count 2.7 x10^3/uL (4.0-10.5)
[2022-01-29 06:05] LABS: ALBUMIN 2.6 g/dL (3.5-5.0); ALKALINE PHOSPHATASE 127 U/L (38-126); AMYLASE 38 U/L (30-110); ANION GAP 10.4 MEQ/L (5-15); BLOOD UREA NITROGEN 13 mg/dL (7-17); CHLORIDE 112 mmol/L (98-107); Calcium 6.9 mg/dL (8.4-10.2); Carbon Dioxide 19 mmol/L (22-30); Creatinine 1 0.52 mg/dL (0.52-1.04); EST GLOMERULAR FILTRATION RATE > 60.0 ML/MIN; Glucose 85 mg/dL (74-106); LIPASE 98 U/L (23-300); Potassium 3.5 mmol/L (3.5-5.1); SGOT/AST 71 U/L (14-36); SGPT/ALT 47 U/L (0-35); SODIUM 138 mmol/L (137-145); Total Protein 5.1 g/dL (6.3-8.2)
[2022-01-29] MEDS: Lopressor 25MG Tab PO SCH (09:15)
[2022-01-29] MEDS: Protonix 40MG Tablet PO SCH (09:15)
[2022-01-29] MEDS ORDERED: DEXLANSOPRAZOLE 60 MG PO SCH (10:00)
[2022-01-29] MEDS ORDERED: PLAVIX Tablet PO SCH (10:00)
--- NOTE | 2022-01-29 12:20 | PCM.DCORD ---
- Discharge Disposition: Home, Self-Care Condition: Good Prescriptions: New Promethazine HCl 25 mg [Phenergan 25 mg] 0 mg PO BID PRN #30 tablet Continue Pravastatin Sodium [Pravachol 20 MG] 20 mg PO HS Amitriptyline HCl 25 mg [Amitriptyline 25 mg Tablet] 25 mg PO HS Duloxetine HCl [Cymbalta] 60 mg PO HS Metoprolol Tartrate 25 mg [Lopressor 25MG Tab] 1 tab PO BID Dexlansoprazole [Dexilant] 1 tab PO DAILY Clopidogrel Bisulfate [PLAVIX Tablet] 1 tab PO UD Nitroglycerin 0.4 mg (Ed) [Nitrostat 0.4 MG (ED)] 0.4 mg SL Q5MIN PRN MR X 3 PRN PRN Reason: Chest Pain Ezetimibe 10 mg [Zetia 10 MG] 1 tab PO HS Additional Instructions: Toradol(Ketoralac) 10mg # 6 tabs Take one tab bid prn pain,take with food phoned Rx to [facility] Follow up with: HERRERA RIVERO [Primary Care Provider] - Call for Appointment
[2022-01-29 12:43] VITALS: BP 141/62; PULSE 62; O2SAT 99
[2022-01-29] MEDS: Zofran 4 MG/2 ML VIAL IV PRN (13:00)
== END 2022-01-29 13:15 | disposition home or self-care (01) ==
LOC: ED 05:31 → MED SURG 08:39
PROVIDERS: ADMIT Family Medicine; ATTEND Family Medicine
DX: K85.90 Acute pancreatitis without necrosis or infection, unspecified (principal); K44.9 Diaphragmatic hernia without obstruction or gangrene; I10 Essential (primary) hypertension; I25.10 Atherosclerotic heart disease of native coronary artery without angina pectoris; E78.5 Hyperlipidemia, unspecified; Z79.899 Other long term (current) drug therapy; Z20.828 Contact with and (suspected) exposure to other viral communicable diseases
CPT/HCPCS: 0241U; 36000; 36415; 70450; 74176; 80053; 81015; 82150; 83605; 83690; 84484; 85025; 93005; 93268; 94760; 96360; 96374; 96375; 99285; G0378; J1200; J1885; J2270; J2405; A9270-GY

== ENCOUNTER 2022-01-29 18:56 | Observation (INO) | payer MEDICARE ==
[2022-01-29] MEDS ORDERED: Sodium Chloride 0.9% 1000 ML 1,000 ML IV STA ×2 (19:31→21:49)
[2022-01-29] MEDS ORDERED: Zofran 4 MG/2 ML VIAL IV ONE (19:31)
[2022-01-29] MEDS ORDERED: Zofran 4 MG/2 ML VIAL ONE (19:47)
[2022-01-29] MEDS ORDERED: Sodium Chloride 0.9% 1000 ML 1,000 ML ONE ×2 (19:47→21:59)
[2022-01-29 20:06] LABS: Absolute Neutrophil Ct (ANC) 2.48 x10^3/uL (1.4-6.9); Basophil (Absolute #) 0.01 x10^3/uL (0-0.4); Eosinophil % 0.8 % (0.00-5.0); Eosinophil (Absolute #) 0.03 x10^3/uL (0-0.5); Hematocrit 33.9 % (35-47); Hemoglobin 11.2 g/dL (12.0-16.0); Lymphocyte (Absolute #) 0.79 x10^3/uL (1.0-4.6); Lymphocytes % 20.7 % (24.0-44.0); Mean Cell Volume 86.9 fL (78-100); Mean Corpuscular Hemoglobin 28.7 pg (26-32); Mean Platelet Volume 12.1 fL (7.5-11.0); Monocytes % 13.1 % (0.0-12.0); Neutrophil % 64.8 % (36.0-66.0); Platelet Count 152 x10^3/uL (150-450); Red Cell Distribution Width 15.1 % (11.5-14.0); White Blood Count 3.8 x10^3/uL (4.0-10.5)
[2022-01-29 20:24] LABS: ALBUMIN 3.3 g/dL (3.5-5.0); ALKALINE PHOSPHATASE 153 U/L (38-126); AMYLASE 39 U/L (30-110); ANION GAP 15.6 MEQ/L (5-15); BLOOD UREA NITROGEN 10 mg/dL (7-17); CHLORIDE 107 mmol/L (98-107); Calcium 8.1 mg/dL (8.4-10.2); Carbon Dioxide 20 mmol/L (22-30); Creatinine 1 0.65 mg/dL (0.52-1.04); EST GLOMERULAR FILTRATION RATE > 60.0 ML/MIN; Glucose 99 mg/dL (74-106); LIPASE 75 U/L (23-300); Potassium 3.5 mmol/L (3.5-5.1); SGOT/AST 70 U/L (14-36); SGPT/ALT 48 U/L (0-35); SODIUM 139 mmol/L (137-145)
--- NOTE | 2022-01-29 21:05 | ERPHSYRPT ---
- History of Present Illness Time Seen by Provider: 01/29/22 19:15 Historian: patient, EMS Exam Limitations: no limitations Patient Subjective Stated Complaint: nausea, abd pain Triage Nursing Assessment: pt to ED by EMS c/o nausea and abd pain possibly r/t pancreatitis since this afternoon. pt was DC from this [facility] dept today at 1300. pt states her pancreatitis was cleared up when she was to be discharged, but she ate lunch before leaving hospital and once she arrived home she began feeling sick and has had no relief since. pt was on clear liquids until last meal at hospital today. rates 4/10 lower abd pain. no emesis reported. 4-5 BMs, soft and formed. pt reports she was DC'd home with prescription for phenergan but has been unable to take anything PO so has found no relief at home. Physician History: This is a 76-year-old white female seen here on 01/28/2022 in this emergency department and diagnosed with acute pancreatitis. CAT scan approximately 24 hours ago was negative for any findings of acute pancreatitis. Lipase was elevated over 1300. Patient was discharged to home today, 01/29/2022 at [facility] 1300. Flu studies were negative on 01/28/2022. Patient states that the last meal she had in the hospital was a clear liquid diet which she tolerated. She was home and then apparently ate a meal with hamburger and it and her symptoms of nausea vomiting abdominal pain recurred. She was brought into the emergency department by EMS. Timing/Duration: today Activities at Onset: none Quality: aching Abdominal Pain Onset Location: generalized abdomen Pain Radiation: no radiation Severity of Pain-Max: moderate Severity of Pain-Current: moderate Modifying Factors: Improves With: nothing Associated Symptoms: nausea, vomiting Previous symptoms: same symptoms as today, recently seen, recent hospitalization, recently treated Allergies/Adverse Reactions: cefaclor [From Ceclor] Allergy (Unknown, Verified 01/28/22 05:33) swelling,rash amoxicillin [Amoxicillin] Allergy (Verified 01/28/22 05:33) swelling,rash hydromorphone [From Dilaudid] Allergy (Verified 01/28/22 08:49) Home Medications: Amitriptyline HCl 25 mg [Amitriptyline 25 mg Tablet] 25 mg PO HS 06/09/12 [History] Duloxetine HCl [Cymbalta] 60 mg PO HS 06/09/12 [History] Pravastatin Sodium [Pravachol 20 MG] 20 mg PO HS 06/09/12 [History] Clopidogrel Bisulfate [PLAVIX Tablet] 1 tab PO UD 09/13/14 [History] Dexlansoprazole [Dexilant] 1 tab PO DAILY 09/13/14 [History] Metoprolol Tartrate 25 mg [Lopressor 25MG Tab] 1 tab PO BID 09/13/14 [History] Nitroglycerin 0.4 mg (Ed) [Nitrostat 0.4 MG (ED)] 0.4 mg SL Q5MIN PRN MR X 3 PRN 12/05/20 [History] Ezetimibe 10 mg [Zetia 10 MG] 1 tab PO HS 01/28/22 [History] Hx Tetanus, Diphtheria Vaccination/Date Given: Yes Hx Influenza Vaccination/Date Given: Yes Hx Pneumococcal Vaccination/Date Given: Yes Immunizations Up to Date: Yes Travel Risk - International Travel Have you traveled outside of the country in past 3 weeks: No - Coronavirus Screening Are you exhibiting any of the following symptoms?: No Close contact with a COVID-19 positive Pt in past 14-21 Days: No - Vaccine Status Have you recieved a Covid-19 vaccination: Yes Energy Rater: Moderna - Vaccination Dates Date of 2cond Vaccination (if applicable): 11/10/20 - Review of Systems Constitutional: No Symptoms Eyes: No Symptoms Ears, Nose, & Throat: No Symptoms Respiratory: No Symptoms Cardiac: No Symptoms Abdominal/Gastrointestinal: Abdominal Pain, Nausea, Vomiting Genitourinary Symptoms: No Symptoms Musculoskeletal: No Symptoms Skin: No Symptoms Neurological: No Symptoms Psychological: No Symptoms Endocrine: No Symptoms Hematologic/Lymphatic: No Symptoms Immunological/Allergic: No Symptoms All Other Systems: Reviewed and Negative - Past Medical History Pertinent Past Medical History: Yes Neurological History: No Pertinent History ENT History: No Pertinent History Cardiac History: High Cholesterol, Hypertension, Other Respiratory History: No Pertinent History Endocrine Medical History: No Pertinent History Musculoskeletal History: Fibromyalgia GI Medical History: Esophageal Disorder, Hernia, Other History: No Pertinent History Psycho-Social History: No Pertinent History Female Reproductive Disorders: No Pertinent History Other Medical History: hiatal hernia - Past Surgical History Past Surgical History: Yes Neuro Surgical History: No Pertinent History Cardiac: Cardiac Catheterization, Cardiac Stent Respiratory: No Pertinent History Gastrointestinal: Appendectomy, Cholecystectomy Genitourinary: No Pertinent History Musculoskeletal: Orthopedic Surgery Female Surgical History: Hysterectomy Other Surgical History: Right shoulder; rods and screws - Social History Smoking Status: Former smoker How long have you smoked: 15 Exposure to second hand smoke: No Drug Use: none Patient Lives Alone: No - Nursing Vital Signs Nursing Vital Signs: Initial Vital Signs Temperature 98.4 F 01/29/22 18:58 Pulse Rate 73 01/29/22 18:58 Respiratory Rate 25 H 01/29/22 18:58 Blood Pressure 141/98 01/29/22 18:58 O2 Sat by Pulse Oximetry 98 01/29/22 18:58 Pain Scale Pain Intensity 7 - Physical Exam General Appearance: no apparent distress, alert, anxiety Eye Exam: PERRL/EOMI, eyes nml inspection Ears, Nose, Throat Exam: normal ENT inspection, moist mucous membranes Neck Exam: normal inspection, non-tender, supple, full range of motion Respiratory Exam: normal breath sounds, lungs clear, airway intact, No chest tenderness, No respiratory distress Cardiovascular Exam: regular rate/rhythm, normal heart sounds, normal peripheral pulses Gastrointestinal/Abdomen Exam: soft, normal bowel sounds, tenderness (Diffuse) Pelvic Exam: not done Rectal Exam: not done Back Exam: normal inspection, normal range of motion, No CVA tenderness, No vertebral tenderness Extremity Exam: normal inspection, normal range of motion, pelvis stable Neurologic Exam: alert, oriented x 3, cooperative, welder repair II-XII nml as tested, normal mood/affect, nml cerebellar function, nml station & gait, sensation nml Skin Exam: normal color, warm, dry Lymphatic Exam: No adenopathy SpO2 Interpretation: normal SpO2: 98 O2 Delivery: Room Air Ordered Tests: Active Orders 24 hr Category Date Time Status EKG-ER Only STAT Care 01/29/22 20:23 Active IV Insertion STAT Care 01/29/22 19:31 Active AMYLASE Stat Lab 01/29/22 20:00 Completed CBC W DIFF Stat Lab 01/29/22 20:00 Completed CMP Stat Lab 01/29/22 20:00 Completed LIPASE Stat Lab 01/29/22 20:00 Completed Lactic Acid Stat Lab 01/29/22 19:31 Completed TROPONIN Q3H Lab 01/29/22 20:00 Completed TROPONIN Q3H Lab 01/29/22 23:30 Ordered TROPONIN Q3H Lab 01/30/22 02:30 Ordered TROPONIN Q3H Lab 01/30/22 05:30 Ordered TROPONIN Q3H Lab 01/30/22 08:30 Ordered UA W/RFX CULTURE Stat Lab 01/29/22 22:29 Completed Medication Summary Discontinued Medications Generic Name Dose Route Start Last Admin Trade Name Luis PRN Reason Stop Dose Admin Sodium Chloride 1,000 mls @ 999 mls/hr 01/29/22 19:31 01/29/22 19:49 Sodium Chloride 0.9% 1000 Ml IV 01/29/22 20:31 999 mls/hr .Q1H1M STA Administration Sodium Chloride Confirm 01/29/22 19:47 Sodium Chloride 0.9% 1000 Ml Administered 01/29/22 19:48 Dose 1,000 mls @ ud .ROUTE .STK-MED ONE Sodium Chloride 1,000 mls @ 999 mls/hr 01/29/22 21:49 01/29/22 22:01 Sodium Chloride 0.9% 1000 Ml IV 01/29/22 22:49 999 mls/hr .Q1H1M STA Administration Sodium Chloride Confirm 01/29/22 21:59 Sodium Chloride 0.9% 1000 Ml Administered 01/29/22 22:00 Dose 1,000 mls @ ud .ROUTE .STK-MED ONE Ketorolac Tromethamine Confirm 01/29/22 21:17 Ketorolac Tromethamine 30 Mg/Ml Inj Administered 01/29/22 21:18 Dose 30 mg .ROUTE .STK-MED ONE Ketorolac Tromethamine 30 mg 01/29/22 21:25 01/29/22 21:26 Ketorolac Tromethamine 30 Mg/Ml Inj IV 01/29/22 21:26 30 mg STAT ONE Administration Ondansetron HCl 4 mg 01/29/22 19:31 01/29/22 19:50 Ondansetron Hcl 4 Mg/2 Ml Vial IV 01/29/22 19:32 4 mg STAT ONE Administration Ondansetron HCl Confirm 01/29/22 19:47 Ondansetron Hcl 4 Mg/2 Ml Vial Administered 01/29/22 19:48 Dose 4 mg .ROUTE .STK-MED ONE Prochlorperazine Edisylate 10 mg 01/29/22 21:13 01/29/22 21:21 Prochlorperazine Edisylate 10 Mg/2 Ml Vial IV 01/29/22 21:14 10 mg STAT ONE Administration Prochlorperazine Edisylate Confirm 01/29/22 21:17 Prochlorperazine Edisylate 10 Mg/2 Ml Vial Administered 01/29/22 21:18 Dose 10 mg .ROUTE .STK-MED ONE Lab/Rad Data: Laboratory Result Diagrams 01/29/22 20:00 01/29/22 20:00 Laboratory Results 01/29/22 01/29/22 01/29/22 Range/Units 22:29 21:45 20:00 WBC (4.0-10.5) x10^3/uL RBC (4.1-5.4) x10^6/uL Hgb (12.0-16.0) g/dL Hct (35-47) % MCV (78-100) fL MCH (26-32) pg MCHC (32-36) g/dL RDW (11.5-14.0) % Plt Count (150-450) x10^3/uL MPV (7.5-11.0) fL Gran % (36.0-66.0) % Immature Gran % (Auto) (0.00-0.4) % Nucleat RBC Rel Count (0.00-0.1) % Eos # (Auto) (0-0.5) x10^3/uL Immature Gran # (Auto) (0.00-0.03) x10^3u/L Absolute Lymphs (auto) (1.0-4.6) x10^3/uL Absolute Monos (auto) (0.0-1.3) x10^3/uL Absolute Nucleated RBC (0.00-0.01) x10^3u/L Lymphocytes % (24.0-44.0) % Monocytes % (0.0-12.0) % Eosinophils % (0.00-5.0) % Basophils % (0.0-0.4) % Absolute Granulocytes (1.4-6.9) x10^3/uL Basophils # (0-0.4) x10^3/uL Sodium (137-145) mmol/L Potassium (3.5-5.1) mmol/L Chloride (98-107) mmol/L Carbon Dioxide (22-30) mmol/L Anion Gap (5-15) MEQ/L BUN (7-17) mg/dL Creatinine (0.52-1.04) mg/dL Estimated GFR ML/MIN Glucose (74-106) mg/dL Lactic Acid (0.4-2.0) Calcium (8.4-10.2) mg/dL Total Bilirubin (0.2-1.3) mg/dL AST (14-36) U/L ALT (0-35) U/L Alkaline Phosphatase (38-126) U/L Troponin I < 0.012 (0.000-0.034) ng/mL Serum Total Protein (6.3-8.2) g/dL Albumin (3.5-5.0) g/dL Amylase (30-110) U/L Lipase (23-300) U/L Urinalys Dipstick Clnc MAIN LAB Urine Color YELLOW (YELLOW) Urine Appearance CLEAR (CLEAR) Urine pH 5.5 (5-6) Ur Specific Falcon 1.015 (1.005-1.025) POC Urine Protein Conf NEGATIVE (Negative) Urine Ketones SMALL-15 (NEGATIVE) Urine Nitrite NEGATIVE (NEGATIVE) Urine Bilirubin NEGATIVE (NEGATIVE) Urine Urobilinogen 0.2 (0-1) mg/dL Urine Leukocytes NEGATIVE (NEGATIVE) Urine WBC (Auto) 0-2 (0-5) /HPF Urine RBC (Auto) 3-5 (0-2) /HPF Urine Bacteria (Auto) RARE (NEGATIVE) /HPF Urine RBC TRACE-INTACT (0-5) Renny/ul Urine Mucus (Auto) SLIGHT (NEGATIVE) /HPF Ur Culture Indicated? NO Urine Glucose NEGATIVE (NEGATIVE) mg/dL Influenza Type A Ag NEGATIVE (NEGATIVE) Influenza Type B Ag NEGATIVE (NEGATIVE) RSV (PCR) NEGATIVE (Negative) SARS-CoV-2 (PCR) NEGATIVE (NEGATIVE) 01/29/22 01/29/22 01/29/22 Range/Units 20:00 20:00 19:31 WBC 3.8 L (4.0-10.5) x10^3/uL RBC 3.90 L (4.1-5.4) x10^6/uL Hgb 11.2 L (12.0-16.0) g/dL Hct 33.9 L (35-47) % MCV 86.9 (78-100) fL MCH 28.7 (26-32) pg MCHC 33.0 (32-36) g/dL RDW 15.1 H (11.5-14.0) % Plt Count 152 (150-450) x10^3/uL MPV 12.1 H (7.5-11.0) fL Gran % 64.8 (36.0-66.0) % Immature Gran % (Auto) 0.3 (0.00-0.4) % Nucleat RBC Rel Count 0.0 (0.00-0.1) % Eos # (Auto) 0.03 (0-0.5) x10^3/uL Immature Gran # (Auto) 0.01 (0.00-0.03) x10^3u/L Absolute Lymphs (auto) 0.79 L (1.0-4.6) x10^3/uL Absolute Monos (auto) 0.50 (0.0-1.3) x10^3/uL Absolute Nucleated RBC 0.00 (0.00-0.01) x10^3u/L Lymphocytes % 20.7 L (24.0-44.0) % Monocytes % 13.1 H (0.0-12.0) % Eosinophils % 0.8 (0.00-5.0) % Basophils % 0.3 (0.0-0.4) % Absolute Granulocytes 2.48 (1.4-6.9) x10^3/uL Basophils # 0.01 (0-0.4) x10^3/uL Sodium 139 (137-145) mmol/L Potassium 3.5 (3.5-5.1) mmol/L Chloride 107 (98-107) mmol/L Carbon Dioxide 20 L (22-30) mmol/L Anion Gap 15.6 H (5-15) MEQ/L BUN 10 (7-17) mg/dL Creatinine 0.65 (0.52-1.04) mg/dL Estimated GFR > 60.0 ML/MIN Glucose 99 (74-106) mg/dL Lactic Acid 1.3 (0.4-2.0) Calcium 8.1 L D (8.4-10.2) mg/dL Total Bilirubin 0.40 (0.2-1.3) mg/dL AST 70 H (14-36) U/L ALT 48 H (0-35) U/L Alkaline Phosphatase 153 H (38-126) U/L Troponin I (0.000-0.034) ng/mL Serum Total Protein 6.0 L (6.3-8.2) g/dL Albumin 3.3 L (3.5-5.0) g/dL Amylase 39 (30-110) U/L Lipase 75 (23-300) U/L Urinalys Dipstick Clnc Urine Color (YELLOW) Urine Appearance (CLEAR) Urine pH (5-6) Ur Specific Falcon (1.005-1.025) POC Urine Protein Conf (Negative) Urine Ketones (NEGATIVE) Urine Nitrite (NEGATIVE) Urine Bilirubin (NEGATIVE) Urine Urobilinogen (0-1) mg/dL Urine Leukocytes (NEGATIVE) Urine WBC (Auto) (0-5) /HPF Urine RBC (Auto) (0-2) /HPF Urine Bacteria (Auto) (NEGATIVE) /HPF Urine RBC (0-5) Renny/ul Urine Mucus (Auto) (NEGATIVE) /HPF Ur Culture Indicated? Urine Glucose (NEGATIVE) mg/dL Influenza Type A Ag (NEGATIVE) Influenza Type B Ag (NEGATIVE) RSV (PCR) (Negative) SARS-CoV-2 (PCR) (NEGATIVE) - Progress Progress: unchanged, improved Progress Note: 01/30/22 00:06 Medical decision making: This patient was discharged from this hospital approximately 11 hours ago. She was in the hospital to treat acute pancreatitis. She was discharged to home and then returned to the emergency department because of intractable vomiting and abdominal pain. Although her pancreas enzymes are now in the normal range and her liver enzyme levels are unchanged from her prior admission levels, she still is unable to consume oral intake. I spoke with Dr. Lenard Lund and we have opted to place her in observation and provide her with intravenous fluids and repeat labs in the morning. I did not repeat the CAT scan that was done within the last 24 to 36 hours since there was negative for any acute findings. Discussed with : Rodolfo Counseled pt/family regarding: lab results, diagnosis - Departure Departure Disposition: Observation Clinical Impression: Abdominal pain, Vomiting Condition: Stable Critical Care Time: No Referrals: HERRERA RIVERO [Primary Care Provider] - Follow up/PCP as directed
[2022-01-29] MEDS ORDERED: Compazine 10 MG/2 ML IV ONE (21:13)
[2022-01-29] MEDS ORDERED: Compazine 10 MG/2 ML ONE (21:17)
[2022-01-29] MEDS ORDERED: TORAdol 30 mg Injection ONE (21:17)
[2022-01-29] MEDS ORDERED: TORAdol 30 mg Injection IV ONE (21:25)
[2022-01-29 22:34] LABS: INFLUENZA A NEGATIVE (NEGATIVE); INFLUENZA B NEGATIVE (NEGATIVE); RESPIRATORY SYNCTIAL VIRUS NEGATIVE (Negative); SARS-CoV-2 Xpert Express NEGATIVE (NEGATIVE)
[2022-01-29 23:35] LABS: Bacteria RARE /HPF (NEGATIVE); Mucus SLIGHT /HPF (NEGATIVE); WBC 0-2 /HPF (0-5)
[2022-01-29 23:38] LABS: Appearance CLEAR (CLEAR); Bilirubin NEGATIVE (NEGATIVE); Glucose NEGATIVE (NEGATIVE); Ketones SMALL-15 (NEGATIVE); Nitrite NEGATIVE (NEGATIVE); Ph 5.5 (5-6); Protein,Urine Dip NEGATIVE (Negative); RBC TRACE-INTACT Ery/ul (0-5); Specific Gravity 1.015 (1.005-1.025); Urobilinogen 0.2 mg/dL (0-1)
[2022-01-29 23:39] LABS: Dipstick done @ ? MAIN LAB; Urine Cultured Indicated? NO
[2022-01-30] MEDS ORDERED: Zofran 4 MG/2 ML VIAL IV PRN (02:28)
[2022-01-30] MEDS: Sodium Chloride 0.9% 1000 ML 1,000 ML IV SCH ×2 (03:01→14:58)
[2022-01-30] MEDS ORDERED: PATIENT OWN MEDICATION IH PRN (04:15)
[2022-01-30 04:53] LABS: Absolute Neutrophil Ct (ANC) 1.74 x10^3/uL (1.4-6.9); Basophil (Absolute #) 0 x10^3/uL (0-0.4); Eosinophil % 0.6 % (0.00-5.0); Eosinophil (Absolute #) 0.02 x10^3/uL (0-0.5); Hematocrit 31.8 % (35-47); Hemoglobin 10.2 g/dL (12.0-16.0); Lymphocyte (Absolute #) 1.01 x10^3/uL (1.0-4.6); Lymphocytes % 31.5 % (24.0-44.0); Mean Cell Volume 88.6 fL (78-100); Mean Corpuscular Hemoglobin 28.4 pg (26-32); Mean Corpuscular Hgb Concent. 32.1 g/dL (32-36); Mean Platelet Volume 11.4 fL (7.5-11.0); Monocyte (Absolute #) 0.43 x10^3/uL (0.0-1.3); Monocytes % 13.4 % (0.0-12.0); Neutrophil % 54.2 % (36.0-66.0); Platelet Count 139 x10^3/uL (150-450); Red Blood Count 3.59 x10^6/uL (4.1-5.4); Red Cell Distribution Width 15.3 % (11.5-14.0); White Blood Count 3.2 x10^3/uL (4.0-10.5)
[2022-01-30 05:14] LABS: AMYLASE 36 U/L (30-110); LIPASE 106 U/L (23-300)
[2022-01-30 05:18] LABS: ALBUMIN 3.1 g/dL (3.5-5.0); ALKALINE PHOSPHATASE 130 U/L (38-126); ANION GAP 11.9 MEQ/L (5-15); BLOOD UREA NITROGEN 7 mg/dL (7-17); CHLORIDE 109 mmol/L (98-107); Calcium 7.5 mg/dL (8.4-10.2); Carbon Dioxide 24 mmol/L (22-30); Creatinine 1 0.57 mg/dL (0.52-1.04); EST GLOMERULAR FILTRATION RATE > 60.0 ML/MIN; Glucose 94 mg/dL (74-106); Potassium 3.6 mmol/L (3.5-5.1); SGOT/AST 62 U/L (14-36); SGPT/ALT 45 U/L (0-35); SODIUM 141 mmol/L (137-145); Total Protein 5.9 g/dL (6.3-8.2)
[2022-01-30] MEDS ORDERED: PHENERGAN 25 MG PO PRN (09:36)
[2022-01-30] MEDS ORDERED: Nitrostat 0.4 MG (ED) SL PRN (09:36)
[2022-01-30] MEDS ORDERED: PLAVIX Tablet PO SCH (09:45)
[2022-01-30] MEDS: PROTONIX 40 MG IV IV SCH (10:13)
[2022-01-30] MEDS: Lopressor 25MG Tab PO SCH ×2 (10:13→21:18)
[2022-01-30] MEDS: PHENERGAN 25 MG PO PRN ×2 (11:13→23:11)
[2022-01-30] MEDS: Zofran 4 MG/2 ML VIAL IV PRN ×2 (14:55→18:49)
--- NOTE | 2022-01-30 18:19 | PCM.HP ---
History of Present Illness - Chief Complaint Chief Complaint: Abdominal pain History of Present Illness: is a 76 year old female pt with NLDM and PMHx HTN, fibromyalgia, and HH who was admitted yesterday through ER with nausea and abdominal pain. She had been admitted at [facility] with pancreatitis and was sent home earlier in the day yesterday. She had been tolerating liquids, then her first solid meal was a hamburger and a potato; after she ate that, she didn't feel as well but she still went home. Throughout the day she continued to have abdominal pain (6/10) and nausea with dry heaves. With pain meds in the ER, her pain decreased to 1/10. Nausea improved with zofran. Interview and exam done at approx 0840. - Review of Systems Constitutional: Weakness Abdominal/Gastrointestinal: Abdominal Pain, Nausea, Vomiting Skin: Other (Feels generalized "burning" in her body since she's been ill.) Neurological: Dizziness (yesterday, when rising to standing position) All Other Systems: Reviewed and Negative Medications & Allergies Home Medications: Home Medication List Amitriptyline HCl 25 mg [Amitriptyline 25 mg Tablet] 25 mg PO HS 06/09/12 [History Confirmed 01/28/22] Duloxetine HCl [Cymbalta] 60 mg PO HS 06/09/12 [History Confirmed 01/28/22] Pravastatin Sodium [Pravachol 20 MG] 20 mg PO HS 06/09/12 [History Confirmed 01/28/22] Clopidogrel Bisulfate [PLAVIX Tablet] 75 mg PO UD 09/13/14 [History Confirmed 01/30/22] Dexlansoprazole [Dexilant] 1 tab PO DAILY 09/13/14 [History Confirmed 01/28/22] Metoprolol Tartrate 25 mg [Lopressor 25MG Tab] 1 tab PO BID 09/13/14 [History Confirmed 01/28/22] Nitroglycerin 0.4 mg (Ed) [Nitrostat 0.4 MG (ED)] 0.4 mg SL Q5MIN PRN MR X 3 PRN 12/05/20 [History Confirmed 01/28/22] Ezetimibe 10 mg [Zetia 10 MG] 1 tab PO HS 01/28/22 [History Confirmed 01/28/22] Promethazine HCl 25 mg [Phenergan 25 mg] 0 mg PO BID PRN #30 tablet 0 01/29/22 [Rx] Allergies/Adverse Reactions: Allergies Allergy/AdvReac Type Severity Reaction Status Date / Time cefaclor [From Ceclor] Allergy Unknown Verified 01/28/22 05:33 amoxicillin [Amoxicillin] Allergy Verified 01/28/22 05:33 hydromorphone [From Dilaudid] Allergy Verified 01/28/22 08:49 - Past Medical History Past Medical History: Yes Neurological History: No Pertinent History ENT History: No Pertinent History Cardiac History: High Cholesterol, Hypertension, Other Respiratory History: No Pertinent History Endocrine Medical History: No Pertinent History Musculoskelatal History: Fibromyalgia GI Medical History: Esophageal Disorder, Hernia, Other History: No Pertinent History Pyscho-Social History: No Pertinent History Reproductive Disorders: No Pertinent History Comment: hiatal hernia - Female History Are you now?: No - Past Surgical History Past Surgical History: Yes Neuro Surgical History: No Pertinent History Cardiac History: Cardiac Catheterization, Cardiac Stent Respiratory Surgery: No Pertinent History GI Surgical History: Appendectomy, Cholecystectomy Genitourinary Surgical Hx: No Pertinent History Musculskeletal Surgical Hx: Orthopedic Surgery Female Surgical History: Hysterectomy Other Surgical History: Right shoulder; rods and screws - Social History Smoking Status: Former smoker How long have you smoked: 15 Exposure to second hand smoke: No Alcohol: None Drug Use: none - Physical Exam Vital Signs: Vital Signs - 24 hr Temp Pulse Resp BP Pulse Ox 01/30/22 15:41 98.6 F 61 16 134/60 99 01/30/22 11:57 97.3 F 62 16 127/60 98 01/30/22 09:25 95 01/30/22 07:58 97.5 F 87 16 134/60 95 01/30/22 04:18 101 H 18 97 01/30/22 04:07 93 L 01/30/22 02:51 97.6 F 79 20 133/60 96 01/30/22 02:35 97.6 F 79 20 133/60 96 01/30/22 02:34 97.6 F 79 20 133/60 96 01/30/22 02:33 18 98 01/30/22 01:31 78 18 153/77 98 01/30/22 00:38 97.8 F 81 20 153/76 01/30/22 00:08 98 01/29/22 18:58 98.4 F 73 25 H 141/98 98 General Appearance: mild distress, alert (wakes to voice) Neurologic Exam: oriented x 3, cooperative Eye Exam: eyes nml inspection Ears, Nose, Throat Exam: moist mucous membranes Neck Exam: normal inspection Respiratory Exam: normal breath sounds, lungs clear, No accessory muscle use, No crackles/rales, No rhonchi, No wheezing Cardiovascular Exam: regular rate/rhythm, normal heart sounds, No murmur Gastrointestinal/Abdomen Exam: soft, tenderness (lower abd bilat), No normal bowel sounds (hypoactive but present), No distention, No mass, No guarding, No rebound Back Exam: normal inspection, No rash Extremity Exam: No pedal edema, No swelling Skin Exam: normal color, warm, dry, No rash Results - Labs Lab/Micro Results: Lab Results-Last 24 Hours 01/29/22 01/29/22 01/29/22 Range/Units 00:10 19:31 20:00 WBC 3.8 L (4.0-10.5) x10^3/uL RBC 3.90 L (4.1-5.4) x10^6/uL Hgb 11.2 L (12.0-16.0) g/dL Hct 33.9 L (35-47) % MCV 86.9 (78-100) fL MCH 28.7 (26-32) pg MCHC 33.0 (32-36) g/dL RDW 15.1 H (11.5-14.0) % Plt Count 152 (150-450) x10^3/uL MPV 12.1 H (7.5-11.0) fL Gran % 64.8 (36.0-66.0) % Immature Gran % (Auto) 0.3 (0.00-0.4) % Nucleat RBC Rel Count 0.0 (0.00-0.1) % Eos # (Auto) 0.03 (0-0.5) x10^3/uL Immature Gran # (Auto) 0.01 (0.00-0.03) x10^3u/L Absolute Lymphs (auto) 0.79 L (1.0-4.6) x10^3/uL Absolute Monos (auto) 0.50 (0.0-1.3) x10^3/uL Absolute Nucleated RBC 0.00 (0.00-0.01) x10^3u/L Lymphocytes % 20.7 L (24.0-44.0) % Monocytes % 13.1 H (0.0-12.0) % Eosinophils % 0.8 (0.00-5.0) % Basophils % 0.3 (0.0-0.4) % Absolute Granulocytes 2.48 (1.4-6.9) x10^3/uL Basophils # 0.01 (0-0.4) x10^3/uL Sodium (137-145) mmol/L Potassium (3.5-5.1) mmol/L Chloride (98-107) mmol/L Carbon Dioxide (22-30) mmol/L Anion Gap (5-15) MEQ/L BUN (7-17) mg/dL Creatinine (0.52-1.04) mg/dL Estimated GFR ML/MIN Glucose (74-106) mg/dL Lactic Acid 1.3 (0.4-2.0) Calcium (8.4-10.2) mg/dL Total Bilirubin (0.2-1.3) mg/dL AST (14-36) U/L ALT (0-35) U/L Alkaline Phosphatase (38-126) U/L Troponin I < 0.012 (0.000-0.034) ng/mL Serum Total Protein (6.3-8.2) g/dL Albumin (3.5-5.0) g/dL Amylase (30-110) U/L Lipase (23-300) U/L Urinalys Dipstick Clnc Urine Color (YELLOW) Urine Appearance (CLEAR) Urine pH (5-6) Ur Specific [place] (1.005-1.025) POC Urine Protein Conf (Negative) Urine Ketones (NEGATIVE) Urine Nitrite (NEGATIVE) Urine Bilirubin (NEGATIVE) Urine Urobilinogen (0-1) mg/dL Urine Leukocytes (NEGATIVE) Urine WBC (Auto) (0-5) /HPF Urine RBC (Auto) (0-2) /HPF Urine Bacteria (Auto) (NEGATIVE) /HPF Urine RBC (0-5) Renny/ul Urine Mucus (Auto) (NEGATIVE) /HPF Ur Culture Indicated? Urine Glucose (NEGATIVE) mg/dL Influenza Type A Ag (NEGATIVE) Influenza Type B Ag (NEGATIVE) RSV (PCR) (Negative) SARS-CoV-2 (PCR) (NEGATIVE) 01/29/22 01/29/22 01/29/22 Range/Units 20:00 20:00 21:45 WBC (4.0-10.5) x10^3/uL RBC (4.1-5.4) x10^6/uL Hgb (12.0-16.0) g/dL Hct (35-47) % MCV (78-100) fL MCH (26-32) pg MCHC (32-36) g/dL RDW (11.5-14.0) % Plt Count (150-450) x10^3/uL MPV (7.5-11.0) fL Gran % (36.0-66.0) % Immature Gran % (Auto) (0.00-0.4) % Nucleat RBC Rel Count (0.00-0.1) % Eos # (Auto) (0-0.5) x10^3/uL Immature Gran # (Auto) (0.00-0.03) x10^3u/L Absolute Lymphs (auto) (1.0-4.6) x10^3/uL Absolute Monos (auto) (0.0-1.3) x10^3/uL Absolute Nucleated RBC (0.00-0.01) x10^3u/L Lymphocytes % (24.0-44.0) % Monocytes % (0.0-12.0) % Eosinophils % (0.00-5.0) % Basophils % (0.0-0.4) % Absolute Granulocytes (1.4-6.9) x10^3/uL Basophils # (0-0.4) x10^3/uL Sodium 139 (137-145) mmol/L Potassium 3.5 (3.5-5.1) mmol/L Chloride 107 (98-107) mmol/L Carbon Dioxide 20 L (22-30) mmol/L Anion Gap 15.6 H (5-15) MEQ/L BUN 10 (7-17) mg/dL Creatinine 0.65 (0.52-1.04) mg/dL Estimated GFR > 60.0 ML/MIN Glucose 99 (74-106) mg/dL Lactic Acid (0.4-2.0) Calcium 8.1 L D (8.4-10.2) mg/dL Total Bilirubin 0.40 (0.2-1.3) mg/dL AST 70 H (14-36) U/L ALT 48 H (0-35) U/L Alkaline Phosphatase 153 H (38-126) U/L Troponin I < 0.012 (0.000-0.034) ng/mL Serum Total Protein 6.0 L (6.3-8.2) g/dL Albumin 3.3 L (3.5-5.0) g/dL Amylase 39 (30-110) U/L Lipase 75 (23-300) U/L Urinalys Dipstick Clnc Urine Color (YELLOW) Urine Appearance (CLEAR) Urine pH (5-6) Ur Specific [place] (1.005-1.025) POC Urine Protein Conf (Negative) Urine Ketones (NEGATIVE) Urine Nitrite (NEGATIVE) Urine Bilirubin (NEGATIVE) Urine Urobilinogen (0-1) mg/dL Urine Leukocytes (NEGATIVE) Urine WBC (Auto) (0-5) /HPF Urine RBC (Auto) (0-2) /HPF Urine Bacteria (Auto) (NEGATIVE) /HPF Urine RBC (0-5) Renny/ul Urine Mucus (Auto) (NEGATIVE) /HPF Ur Culture Indicated? Urine Glucose (NEGATIVE) mg/dL Influenza Type A Ag NEGATIVE (NEGATIVE) Influenza Type B Ag NEGATIVE (NEGATIVE) RSV (PCR) NEGATIVE (Negative) SARS-CoV-2 (PCR) NEGATIVE (NEGATIVE) 01/29/22 01/30/22 01/30/22 Range/Units 22:29 04:20 04:20 WBC 3.2 L (4.0-10.5) x10^3/uL RBC 3.59 L (4.1-5.4) x10^6/uL Hgb 10.2 L (12.0-16.0) g/dL Hct 31.8 L (35-47) % MCV 88.6 (78-100) fL MCH 28.4 (26-32) pg MCHC 32.1 (32-36) g/dL RDW 15.3 H (11.5-14.0) % Plt Count 139 L (150-450) x10^3/uL MPV 11.4 H (7.5-11.0) fL Gran % 54.2 (36.0-66.0) % Immature Gran % (Auto) 0.3 (0.00-0.4) % Nucleat RBC Rel Count 0.0 (0.00-0.1) % Eos # (Auto) 0.02 (0-0.5) x10^3/uL Immature Gran # (Auto) 0.01 (0.00-0.03) x10^3u/L Absolute Lymphs (auto) 1.01 (1.0-4.6) x10^3/uL Absolute Monos (auto) 0.43 (0.0-1.3) x10^3/uL Absolute Nucleated RBC 0.00 (0.00-0.01) x10^3u/L Lymphocytes % 31.5 (24.0-44.0) % Monocytes % 13.4 H (0.0-12.0) % Eosinophils % 0.6 (0.00-5.0) % Basophils % 0.0 (0.0-0.4) % Absolute Granulocytes 1.74 (1.4-6.9) x10^3/uL Basophils # 0 (0-0.4) x10^3/uL Sodium 141 (137-145) mmol/L Potassium 3.6 (3.5-5.1) mmol/L Chloride 109 H (98-107) mmol/L Carbon Dioxide 24 (22-30) mmol/L Anion Gap 11.9 (5-15) MEQ/L BUN 7 (7-17) mg/dL Creatinine 0.57 (0.52-1.04) mg/dL Estimated GFR > 60.0 ML/MIN Glucose 94 (74-106) mg/dL Lactic Acid (0.4-2.0) Calcium 7.5 L (8.4-10.2) mg/dL Total Bilirubin 0.30 (0.2-1.3) mg/dL AST 62 H (14-36) U/L ALT 45 H (0-35) U/L Alkaline Phosphatase 130 H (38-126) U/L Troponin I (0.000-0.034) ng/mL Serum Total Protein 5.9 L (6.3-8.2) g/dL Albumin 3.1 L (3.5-5.0) g/dL Amylase (30-110) U/L Lipase (23-300) U/L Urinalys Dipstick Clnc MAIN LAB Urine Color YELLOW (YELLOW) Urine Appearance CLEAR (CLEAR) Urine pH 5.5 (5-6) Ur Specific [place] 1.015 (1.005-1.025) POC Urine Protein Conf NEGATIVE (Negative) Urine Ketones SMALL-15 (NEGATIVE) Urine Nitrite NEGATIVE (NEGATIVE) Urine Bilirubin NEGATIVE (NEGATIVE) Urine Urobilinogen 0.2 (0-1) mg/dL Urine Leukocytes NEGATIVE (NEGATIVE) Urine WBC (Auto) 0-2 (0-5) /HPF Urine RBC (Auto) 3-5 (0-2) /HPF Urine Bacteria (Auto) RARE (NEGATIVE) /HPF Urine RBC TRACE-INTACT (0-5) Renny/ul Urine Mucus (Auto) SLIGHT (NEGATIVE) /HPF Ur Culture Indicated? NO Urine Glucose NEGATIVE (NEGATIVE) mg/dL Influenza Type A Ag (NEGATIVE) Influenza Type B Ag (NEGATIVE) RSV (PCR) (Negative) SARS-CoV-2 (PCR) (NEGATIVE) 01/30/22 Range/Units 04:20 WBC (4.0-10.5) x10^3/uL RBC (4.1-5.4) x10^6/uL Hgb (12.0-16.0) g/dL Hct (35-47) % MCV (78-100) fL MCH (26-32) pg MCHC (32-36) g/dL RDW (11.5-14.0) % Plt Count (150-450) x10^3/uL MPV (7.5-11.0) fL Gran % (36.0-66.0) % Immature Gran % (Auto) (0.00-0.4) % Nucleat RBC Rel Count (0.00-0.1) % Eos # (Auto) (0-0.5) x10^3/uL Immature Gran # (Auto) (0.00-0.03) x10^3u/L Absolute Lymphs (auto) (1.0-4.6) x10^3/uL Absolute Monos (auto) (0.0-1.3) x10^3/uL Absolute Nucleated RBC (0.00-0.01) x10^3u/L Lymphocytes % (24.0-44.0) % Monocytes % (0.0-12.0) % Eosinophils % (0.00-5.0) % Basophils % (0.0-0.4) % Absolute Granulocytes (1.4-6.9) x10^3/uL Basophils # (0-0.4) x10^3/uL Sodium (137-145) mmol/L Potassium (3.5-5.1) mmol/L Chloride (98-107) mmol/L Carbon Dioxide (22-30) mmol/L Anion Gap (5-15) MEQ/L BUN (7-17) mg/dL Creatinine (0.52-1.04) mg/dL Estimated GFR ML/MIN Glucose (74-106) mg/dL Lactic Acid (0.4-2.0) Calcium (8.4-10.2) mg/dL Total Bilirubin (0.2-1.3) mg/dL AST (14-36) U/L ALT (0-35) U/L Alkaline Phosphatase (38-126) U/L Troponin I (0.000-0.034) ng/mL Serum Total Protein (6.3-8.2) g/dL Albumin (3.5-5.0) g/dL Amylase 36 (30-110) U/L Lipase 106 (23-300) U/L Urinalys Dipstick Clnc Urine Color (YELLOW) Urine Appearance (CLEAR) Urine pH (5-6) Ur Specific [place] (1.005-1.025) POC Urine Protein Conf (Negative) Urine Ketones (NEGATIVE) Urine Nitrite (NEGATIVE) Urine Bilirubin (NEGATIVE) Urine Urobilinogen (0-1) mg/dL Urine Leukocytes (NEGATIVE) Urine WBC (Auto) (0-5) /HPF Urine RBC (Auto) (0-2) /HPF Urine Bacteria (Auto) (NEGATIVE) /HPF Urine RBC (0-5) Renny/ul Urine Mucus (Auto) (NEGATIVE) /HPF Ur Culture Indicated? Urine Glucose (NEGATIVE) mg/dL Influenza Type A Ag (NEGATIVE) Influenza Type B Ag (NEGATIVE) RSV (PCR) (Negative) SARS-CoV-2 (PCR) (NEGATIVE) Assessment/Plan (1) Abdominal pain Current Visit: Yes Status: Acute Qualifiers: Abdominal location: generalized Qualified Code(s): R10.84 - Generalized abdominal pain Assessment & Plan: Her tenderness is in the lower abdomen. Her amylase and lipase continue to be normal. May be more a function of refeeding too quickly or possibly ileus. Advised to only advance as tolerated, and to avoid greasy/heavy/cheesy foods altogether for the next 1-2 weeks. Code(s): R10.9 - UNSPECIFIED ABDOMINAL PAIN (2) Nausea Current Visit: Yes Status: Acute Code(s): R11.0 - NAUSEA (3) HTN (hypertension) Current Visit: No Status: Chronic Qualifiers: Hypertension type: primary hypertension Qualified Code(s): I10 - Essential (primary) hypertension Code(s): I10 - ESSENTIAL (PRIMARY) HYPERTENSION (4) Hiatal hernia Current Visit: No Status: Chronic Code(s): K44.9 - DIAPHRAGMATIC HERNIA WITHOUT OBSTRUCTION OR GANGRENE
[2022-01-30] MEDS: TYLENOL 325 MG PO PRN (18:49)
[2022-01-30] MEDS: AMITRIPTYLINE 25 MG TABLET PO SCH (21:17)
[2022-01-30] MEDS: ZOCOR 20MG PO SCH (21:17)
[2022-01-30] MEDS: Cymbalta 30 MG Capsule PO SCH (21:18)
[2022-01-30] MEDS: Zetia 10 MG PO SCH (21:18)
[2022-01-30] MEDS ORDERED: PRAVASTATIN SODIUM 20 MG PO SCH (22:00)
[2022-01-30] MEDS ORDERED: NON-FORMULARY ITEM (Duloxetine Hcl [Cymbalta] 60 MG Capsule.Dr) PO SCH (22:00)
[2022-01-31] MEDS: Sodium Chloride 0.9% 1000 ML 1,000 ML IV SCH ×3 (00:12→18:39)
[2022-01-31] MEDS: TYLENOL 325 MG PO PRN (08:04)
--- NOTE | 2022-01-31 08:35 | PCM.NOTE ---
Date and Time: 01/31/22824 Subjective Assessment: Pt had some nausea last night, received zofran and phenergan. Was just taking in clear liquids. Her abd pain was 4/10 at that time. This morning, she is having no abdominal pain. Just received Tylenol earlier for headache. No nausea, but hasn't had any intake yet. - Review of Systems Constitutional: No Fever Abdominal/Gastrointestinal: Abdominal Pain, Nausea Objective Exam General Appearance: no apparent distress, alert Neurologic Exam: oriented x 3, cooperative Skin Exam: normal color, warm, dry, No rash Eye Exam: eyes nml inspection Ears, Nose, Throat Exam: moist mucous membranes Respiratory Exam: normal breath sounds, lungs clear, No crackles/rales, No rhonchi, No wheezing Cardiovascular Exam: regular rate/rhythm, normal heart sounds, No murmur Gastrointestinal/Abdomen Exam: soft, normal bowel sounds, No tenderness, No distention, No mass, No guarding, No rebound Extremity Exam: No pedal edema, No swelling Back Exam: normal inspection, No rash OBJECTIVE DATA Vital Signs: Vital Signs - 24 hr Temp Pulse Resp BP Pulse Ox 01/31/22 07:08 98.9 F 78 16 130/62 92 L 01/31/22 04:00 97.1 F 68 25 H 165/77 93 L 01/31/22 00:00 97.5 F 69 20 139/71 95 01/30/22 19:40 97.1 F 67 16 159/71 99 01/30/22 15:41 98.6 F 61 16 134/60 99 01/30/22 11:57 97.3 F 62 16 127/60 98 01/30/22 09:25 95 Pain Assessment - Last Documented Pain Intensity 4 Pain Scale Used 0-10 Pain Scale Intake and Output: Intake & Output 01/28/22 01/29/22 01/30/22 01/31/22 11:59 11:59 11:59 11:59 Intake Total 120 2163 Output Total 800 2300 Balance -680 -137 Weight 82.8 kg 82 kg Assessment/Plan (1) Abdominal pain Current Visit: Yes Status: Acute Qualifiers: Abdominal location: generalized Qualified Code(s): R10.84 - Generalized abdominal pain Assessment & Plan: None currently. Rechecking labs. Could have been ileus. Refeeding slowly. If doing well, could go home tonight or tomorrow. Code(s): R10.9 - UNSPECIFIED ABDOMINAL PAIN (2) Nausea Current Visit: Yes Status: Acute Assessment & Plan: intermittent. Code(s): R11.0 - NAUSEA (3) HTN (hypertension) Current Visit: No Status: Chronic Qualifiers: Hypertension type: primary hypertension Qualified Code(s): I10 - Essential (primary) hypertension Assessment & Plan: stable. Code(s): I10 - ESSENTIAL (PRIMARY) HYPERTENSION (4) Hiatal hernia Current Visit: No Status: Chronic Code(s): K44.9 - DIAPHRAGMATIC HERNIA WITHOUT OBSTRUCTION OR GANGRENE
[2022-01-31 09:03] LABS: Absolute Neutrophil Ct (ANC) 3.36 x10^3/uL (1.4-6.9); Basophil (Absolute #) 0.01 x10^3/uL (0-0.4); Eosinophil % 1.4 % (0.00-5.0); Eosinophil (Absolute #) 0.07 x10^3/uL (0-0.5); Hematocrit 32.7 % (35-47); Hemoglobin 10.5 g/dL (12.0-16.0); Mean Cell Volume 89.1 fL (78-100); Mean Corpuscular Hemoglobin 28.6 pg (26-32); Mean Corpuscular Hgb Concent. 32.1 g/dL (32-36); Mean Platelet Volume 11.8 fL (7.5-11.0); Monocyte (Absolute #) 0.46 x10^3/uL (0.0-1.3); Monocytes % 9.2 % (0.0-12.0); Platelet Count 123 x10^3/uL (150-450); Red Blood Count 3.67 x10^6/uL (4.1-5.4); Red Cell Distribution Width 14.9 % (11.5-14.0)
[2022-01-31] MEDS: Zofran 4 MG/2 ML VIAL IV PRN ×2 (09:29→14:03)
[2022-01-31 09:40] LABS: ALBUMIN 3.1 g/dL (3.5-5.0); ALKALINE PHOSPHATASE 119 U/L (38-126); ANION GAP 13.3 MEQ/L (5-15); BLOOD UREA NITROGEN 6 mg/dL (7-17); CHLORIDE 109 mmol/L (98-107); Carbon Dioxide 19 mmol/L (22-30); Creatinine 1 0.47 mg/dL (0.52-1.04); EST GLOMERULAR FILTRATION RATE > 60.0 ML/MIN; Glucose 95 mg/dL (74-106); LIPASE 310 U/L (23-300); Potassium 3.9 mmol/L (3.5-5.1); SGOT/AST 53 U/L (14-36); SGPT/ALT 37 U/L (0-35); SODIUM 138 mmol/L (137-145); Total Protein 5.8 g/dL (6.3-8.2)
[2022-01-31] MEDS: PROTONIX 40 MG IV IV SCH (09:59)
[2022-01-31] MEDS: Lopressor 25MG Tab PO SCH ×2 (09:59→21:05)
[2022-01-31] MEDS: PLAVIX Tablet PO SCH (09:59)
[2022-01-31 10:54] LABS: Slide Review 1 YES
[2022-01-31] MEDS: ZOCOR 20MG PO SCH (21:05)
[2022-01-31] MEDS: Cymbalta 30 MG Capsule PO SCH (21:05)
[2022-01-31] MEDS: Zetia 10 MG PO SCH (21:05)
[2022-01-31] MEDS: AMITRIPTYLINE 25 MG TABLET PO SCH (21:05)
[2022-01-31] MEDS: PHENERGAN 25 MG PO PRN (22:23)
[2022-02-01] MEDS: Sodium Chloride 0.9% 1000 ML 1,000 ML IV SCH ×3 (04:25→23:49)
[2022-02-01] MEDS: TYLENOL 325 MG PO PRN (07:53)
--- NOTE | 2022-02-01 08:36 | PCM.NOTE ---
Date and Time: 02/01/22 0835 Subjective Assessment: pain resolved, tolerating clears and had 1 cracker this morning, no nausea or vomiting. feels tired Objective Exam General Appearance: no apparent distress Neurologic Exam: alert, oriented x 3 Respiratory Exam: normal breath sounds, lungs clear, No respiratory distress Cardiovascular Exam: regular rate/rhythm, normal heart sounds Gastrointestinal/Abdomen Exam: soft, normal bowel sounds, No tenderness, No distention, No mass, No guarding, No rebound Extremity Exam: normal inspection, normal range of motion OBJECTIVE DATA Vital Signs: Vital Signs - 24 hr Temp Pulse Resp BP Pulse Ox 02/01/22 07:33 97.6 F 79 20 138/72 96 02/01/22 04:00 97.6 F 79 20 138/72 96 02/01/22 00:00 97.9 F 72 20 133/64 98 01/31/22 19:27 97.6 F 66 20 148/66 98 01/31/22 15:46 96.8 F 67 16 144/65 95 01/31/22 11:22 97.3 F 60 16 120/60 95 Pain Assessment - Last Documented Pain Intensity 3 Pain Scale Used 0-10 Pain Scale Intake and Output: Intake & Output 01/29/22 01/30/22 01/31/22 02/01/22 11:59 11:59 11:59 11:59 Intake Total 120 2643 5446 Output Total 800 2300 3050 Balance -417 502 4510 Weight 82.8 kg 82 kg 81 kg Lab Results: Lab Results-Last 24 Hours 01/31/22 01/31/22 Range/Units 08:50 08:50 WBC 5.0 (4.0-10.5) x10^3/uL RBC 3.67 L (4.1-5.4) x10^6/uL Hgb 10.5 L (12.0-16.0) g/dL Hct 32.7 L (35-47) % MCV 89.1 (78-100) fL MCH 28.6 (26-32) pg MCHC 32.1 (32-36) g/dL RDW 14.9 H (11.5-14.0) % Plt Count 123 L (150-450) x10^3/uL MPV 11.8 H (7.5-11.0) fL Gran % 67.0 H (36.0-66.0) % Immature Gran % (Auto) 0.2 (0.00-0.4) % Nucleat RBC Rel Count 0.0 (0.00-0.1) % Eos # (Auto) 0.07 (0-0.5) x10^3/uL Immature Gran # (Auto) 0.01 (0.00-0.03) x10^3u/L Absolute Lymphs (auto) 1.10 (1.0-4.6) x10^3/uL Absolute Monos (auto) 0.46 (0.0-1.3) x10^3/uL Absolute Nucleated RBC 0.00 (0.00-0.01) x10^3u/L Lymphocytes % 22.0 L (24.0-44.0) % Monocytes % 9.2 (0.0-12.0) % Eosinophils % 1.4 (0.00-5.0) % Basophils % 0.2 (0.0-0.4) % Absolute Granulocytes 3.36 (1.4-6.9) x10^3/uL Basophils # 0.01 (0-0.4) x10^3/uL Sodium 138 (137-145) mmol/L Potassium 3.9 (3.5-5.1) mmol/L Chloride 109 H (98-107) mmol/L Carbon Dioxide 19 L (22-30) mmol/L Anion Gap 13.3 (5-15) MEQ/L BUN 6 L (7-17) mg/dL Creatinine 0.47 L (0.52-1.04) mg/dL Estimated GFR > 60.0 ML/MIN Glucose 95 (74-106) mg/dL Calcium 8.0 L (8.4-10.2) mg/dL Total Bilirubin 0.60 (0.2-1.3) mg/dL AST 53 H (14-36) U/L ALT 37 H (0-35) U/L Alkaline Phosphatase 119 (38-126) U/L Serum Total Protein 5.8 L (6.3-8.2) g/dL Albumin 3.1 L (3.5-5.0) g/dL Lipase 310 H (23-300) U/L Slides for Path Review YES Multi-Disciplinary Progress Notes: Multi-Disciplinary Progress Notes 01/31/22 11:04 Case Management Note by Pavithra Hurley REVIEWED CHART- NO NEW/DIFFERENT NEEDS IDENTIFIED FOR DC AT THIS TIME. NO CHANGE IN DC PLANS Initialized on 01/31/22 11:04 - END OF NOTE Assessment/Plan (1) Acute pancreatitis Current Visit: No Status: Resolved Qualifiers: Pancreatitis type: unspecified pancreatitis type Assessment & Plan: ordered labs for this morning, clinically looks good. plan to advance to bland diet at lunch, advised to try something very bland such as toast, if able to tolerate without problems possibly home later today or tomorrow. Code(s): K85.90 - ACUTE PANCREATITIS WITHOUT NECROSIS OR INFECTION, UNSP
[2022-02-01 09:10] LABS: Basophil (Absolute #) 0.01 x10^3/uL (0-0.4); Eosinophil % 1.3 % (0.00-5.0); Eosinophil (Absolute #) 0.07 x10^3/uL (0-0.5); Hematocrit 33.2 % (35-47); Hemoglobin 10.8 g/dL (12.0-16.0); Lymphocyte (Absolute #) 1.41 x10^3/uL (1.0-4.6); Lymphocytes % 25.5 % (24.0-44.0); Mean Cell Volume 87.4 fL (78-100); Mean Corpuscular Hemoglobin 28.4 pg (26-32); Mean Corpuscular Hgb Concent. 32.5 g/dL (32-36); Mean Platelet Volume 11.4 fL (7.5-11.0); Monocyte (Absolute #) 0.53 x10^3/uL (0.0-1.3); Monocytes % 9.6 % (0.0-12.0); Neutrophil % 63.2 % (36.0-66.0); Platelet Count 170 x10^3/uL (150-450); Red Cell Distribution Width 14.7 % (11.5-14.0); White Blood Count 5.5 x10^3/uL (4.0-10.5)
[2022-02-01] MEDS: PROTONIX 40 MG IV IV SCH (09:13)
[2022-02-01] MEDS: Lopressor 25MG Tab PO SCH ×2 (09:13→21:15)
[2022-02-01 09:17] LABS: ALBUMIN 3.5 g/dL (3.5-5.0); ALKALINE PHOSPHATASE 121 U/L (38-126); AMYLASE 47 U/L (30-110); ANION GAP 13.4 MEQ/L (5-15); BLOOD UREA NITROGEN 4 mg/dL (7-17); CHLORIDE 106 mmol/L (98-107); Calcium 8.4 mg/dL (8.4-10.2); Carbon Dioxide 23 mmol/L (22-30); Creatinine 1 0.57 mg/dL (0.52-1.04); EST GLOMERULAR FILTRATION RATE > 60.0 ML/MIN; Glucose 103 mg/dL (74-106); LIPASE 319 U/L (23-300); Potassium 3.5 mmol/L (3.5-5.1); SGOT/AST 44 U/L (14-36); SGPT/ALT 33 U/L (0-35); SODIUM 139 mmol/L (137-145); Total Protein 6.6 g/dL (6.3-8.2)
[2022-02-01] MEDS: PHENERGAN 25 MG PO PRN (14:12)
[2022-02-01] MEDS: Zetia 10 MG PO SCH (21:14)
[2022-02-01] MEDS: ZOCOR 20MG PO SCH (21:14)
[2022-02-01] MEDS: Cymbalta 30 MG Capsule PO SCH (21:14)
[2022-02-01] MEDS: AMITRIPTYLINE 25 MG TABLET PO SCH (21:15)
[2022-02-02 06:18] LABS: Absolute Neutrophil Ct (ANC) 2.42 x10^3/uL (1.4-6.9); Basophil (Absolute #) 0.02 x10^3/uL (0-0.4); Eosinophil % 2.5 % (0.00-5.0); Eosinophil (Absolute #) 0.11 x10^3/uL (0-0.5); Hematocrit 31.9 % (35-47); Hemoglobin 10.3 g/dL (12.0-16.0); Lymphocyte (Absolute #) 1.26 x10^3/uL (1.0-4.6); Lymphocytes % 29.2 % (24.0-44.0); Mean Cell Volume 88.1 fL (78-100); Mean Corpuscular Hemoglobin 28.5 pg (26-32); Mean Corpuscular Hgb Concent. 32.3 g/dL (32-36); Mean Platelet Volume 11.7 fL (7.5-11.0); Monocytes % 11.6 % (0.0-12.0); Platelet Count 172 x10^3/uL (150-450); Red Blood Count 3.62 x10^6/uL (4.1-5.4); Red Cell Distribution Width 14.7 % (11.5-14.0); White Blood Count 4.3 x10^3/uL (4.0-10.5)
[2022-02-02 06:31] LABS: ALBUMIN 3.1 g/dL (3.5-5.0); ALKALINE PHOSPHATASE 105 U/L (38-126); AMYLASE 51 U/L (30-110); ANION GAP 8.7 MEQ/L (5-15); BLOOD UREA NITROGEN 4 mg/dL (7-17); CHLORIDE 104 mmol/L (98-107); Calcium 8.3 mg/dL (8.4-10.2); Carbon Dioxide 30 mmol/L (22-30); Creatinine 1 0.61 mg/dL (0.52-1.04); EST GLOMERULAR FILTRATION RATE > 60.0 ML/MIN; Glucose 94 mg/dL (74-106); LIPASE 333 U/L (23-300); Potassium 3.4 mmol/L (3.5-5.1); SGOT/AST 37 U/L (14-36); SGPT/ALT 28 U/L (0-35); SODIUM 140 mmol/L (137-145)
[2022-02-02] MEDS: TYLENOL 325 MG PO PRN (08:12)
[2022-02-02] MEDS: Sodium Chloride 0.9% 1000 ML 1,000 ML IV SCH (09:32)
[2022-02-02] MEDS: Lopressor 25MG Tab PO SCH (09:34)
[2022-02-02] MEDS: PROTONIX 40 MG IV IV SCH (09:34)
[2022-02-02] MEDS: PLAVIX Tablet PO SCH (09:34)
[2022-02-02 12:04] VITALS: BP 144/67; PULSE 58; O2SAT 96
--- NOTE | 2022-02-02 13:39 | PCM.DS ---
Discharge Summary Date of Admission: 01/30/22 02:20 Admitting Physician: JAMES DOE Primary Care Provider: HERRERA RIVERO Allergies Allergies cefaclor [From Ceclor] Allergy (Unknown, Verified 01/28/22 05:33) swelling,rash amoxicillin [Amoxicillin] Allergy (Verified 01/28/22 05:33) swelling,rash hydromorphone [From Dilaudid] Allergy (Verified 01/28/22 08:49) Hospital Summary - Hospital Course Hospital Course: Pt is a 76 yo female pt of Dr. Herrera Vizcaino with HTN and HH who had been admitted at [facility] for pancreatitis. She was improving, then ate a hamburger and potato prior to discharge and started feeling poorly again. Her amylase and lipase were normal. Her labs have been non-acute. She has advanced her diet very slowly and is basically on clear liquids with occasional cracker or handful of cheerios. Her nausea and abd pain have improved. She would like to go home, which I think is reasonable, on po zofran and phenergan. F/u with Dr. Rivero next week and then they can decide if she needs to return to GI or not. - Vitals & Intake/Output Vital Signs: Vital Signs Temperature 98.7 F 02/02/22 12:00 Pulse Rate 58 L 02/02/22 12:00 Respiratory Rate 18 02/02/22 12:00 Blood Pressure 144/67 02/02/22 12:00 O2 Sat by Pulse Oximetry 96 02/02/22 12:00 Intake & Output: Intake & Output 01/31/22 02/01/22 02/02/22 02/03/22 11:59 11:59 11:59 11:59 Intake Total 2643 5926 4951 120 Output Total 2300 4950 2900 Balance 436 242 5927 120 Weight 82 kg 81 kg 81 kg - Lab Result Diagrams: 02/02/22 05:44 02/02/22 05:44 Lab Results-Last 24 Hrs: Lab Results-Last 24 Hours 02/02/22 02/02/22 Range/Units 05:44 05:44 WBC 4.3 (4.0-10.5) x10^3/uL RBC 3.62 L (4.1-5.4) x10^6/uL Hgb 10.3 L (12.0-16.0) g/dL Hct 31.9 L (35-47) % MCV 88.1 (78-100) fL MCH 28.5 (26-32) pg MCHC 32.3 (32-36) g/dL RDW 14.7 H (11.5-14.0) % Plt Count 172 (150-450) x10^3/uL MPV 11.7 H (7.5-11.0) fL Gran % 56.0 (36.0-66.0) % Immature Gran % (Auto) 0.2 (0.00-0.4) % Nucleat RBC Rel Count 0.0 (0.00-0.1) % Eos # (Auto) 0.11 (0-0.5) x10^3/uL Immature Gran # (Auto) 0.01 (0.00-0.03) x10^3u/L Absolute Lymphs (auto) 1.26 (1.0-4.6) x10^3/uL Absolute Monos (auto) 0.50 (0.0-1.3) x10^3/uL Absolute Nucleated RBC 0.00 (0.00-0.01) x10^3u/L Lymphocytes % 29.2 (24.0-44.0) % Monocytes % 11.6 (0.0-12.0) % Eosinophils % 2.5 (0.00-5.0) % Basophils % 0.5 (0.0-0.4) % Absolute Granulocytes 2.42 (1.4-6.9) x10^3/uL Basophils # 0.02 (0-0.4) x10^3/uL Sodium 140 (137-145) mmol/L Potassium 3.4 L (3.5-5.1) mmol/L Chloride 104 (98-107) mmol/L Carbon Dioxide 30 (22-30) mmol/L Anion Gap 8.7 (5-15) MEQ/L BUN 4 L (7-17) mg/dL Creatinine 0.61 (0.52-1.04) mg/dL Estimated GFR > 60.0 ML/MIN Glucose 94 (74-106) mg/dL Calcium 8.3 L (8.4-10.2) mg/dL Total Bilirubin 0.50 (0.2-1.3) mg/dL AST 37 H (14-36) U/L ALT 28 (0-35) U/L Alkaline Phosphatase 105 (38-126) U/L Serum Total Protein 6.0 L (6.3-8.2) g/dL Albumin 3.1 L (3.5-5.0) g/dL Amylase 51 (30-110) U/L Lipase 333 H (23-300) U/L - Procedures and Test Procedures and Tests throughout Hospitalization: Therapy Orders & Screens 01/30/22 04:15 Respiratory Therapy Assessment DAILY Comment: Diagnosis: Abdominal pain Discharge Exam General Appearance: no apparent distress, alert Neurologic Exam: oriented x 3, cooperative Eye Exam: eyes nml inspection Ears, Nose, Throat Exam: moist mucous membranes Neck Exam: normal inspection Respiratory Exam: normal breath sounds, lungs clear, No crackles/rales, No rhonchi, No wheezing Cardiovascular Exam: regular rate/rhythm, normal heart sounds, No murmur Gastrointestinal/Abdomen Exam: soft, normal bowel sounds, tenderness (lower abdomen, mild), No distention, No mass, No guarding, No rebound Extremity Exam: normal inspection, No pedal edema, No swelling Skin Exam: normal color, warm, dry, No rash Final Diagnosis/Problem List - Final Discharge Diagnosis/Problem (1) Abdominal pain Current Visit: Yes Status: Acute Assessment & Plan: likely persistent pancreatitis symptoms, although her tenderness was not epigastric but rather lower abdominal. Improved; can be managed at home. F/u with Dr. Rivero next week. Code(s): R10.9 - UNSPECIFIED ABDOMINAL PAIN (2) Nausea Current Visit: Yes Status: Resolved Code(s): R11.0 - NAUSEA (3) HTN (hypertension) Current Visit: No Status: Chronic Code(s): I10 - ESSENTIAL (PRIMARY) HYPERTENSION (4) Hiatal hernia Current Visit: No Status: Chronic Code(s): K44.9 - DIAPHRAGMATIC HERNIA WITHOUT OBSTRUCTION OR GANGRENE - Discharge Disposition: Home, Self-Care Condition: Good Prescriptions: New Ondansetron ODT 4 MG [Zofran Odt 4 mg] 4 mg PO Q6H PRN PRN #15 tablet PRN Reason: Nausea Continue Pravastatin Sodium [Pravachol 20 MG] 20 mg PO HS Amitriptyline HCl 25 mg [Amitriptyline 25 mg Tablet] 25 mg PO HS Duloxetine HCl [Cymbalta] 60 mg PO HS Metoprolol Tartrate 25 mg [Lopressor 25MG Tab] 1 tab PO BID Dexlansoprazole [Dexilant] 1 tab PO DAILY Clopidogrel Bisulfate [PLAVIX Tablet] 75 mg PO UD Nitroglycerin 0.4 mg (Ed) [Nitrostat 0.4 MG (ED)] 0.4 mg SL Q5MIN PRN MR X 3 PRN PRN Reason: Chest Pain Ezetimibe 10 mg [Zetia 10 MG] 1 tab PO HS Promethazine HCl 25 mg [Phenergan 25 mg] 0 mg PO BID PRN #30 tablet Instructions: Pancreatitis (DC), [place] Diet Additional Instructions: avoid greasy/cheesy/heavy foods altogether for 1-2 weeks Follow up with: JAMES DOE [ACTIVE STAFF] -
== END 2022-02-02 13:50 | disposition home or self-care (01) ==
LOC: ED 18:56 → MED SURG 01-30 02:20
PROVIDERS: ADMIT Family Medicine; ATTEND Family Medicine
DX: R10.9 Unspecified abdominal pain (principal); R11.0 Nausea; I10 Essential (primary) hypertension; K44.9 Diaphragmatic hernia without obstruction or gangrene; K85.90 Acute pancreatitis without necrosis or infection, unspecified; E78.00 Pure hypercholesterolemia, unspecified; Z79.899 Other long term (current) drug therapy; Z20.828 Contact with and (suspected) exposure to other viral communicable diseases
CPT/HCPCS: 0241U; 36000; 36415; 80053; 81015; 82150; 83605; 83690; 84484; 85025; 93005; 94760; 96374; 96375; 99284; G0378; J1885; J2405; A9270-GY

== ENCOUNTER 2022-05-03 21:10 | Emergency (ER) | payer MEDICARE ==
[2022-05-03] MEDS ORDERED: MORPHINE SULFATE 4 MG INJ IV ONE (21:52)
[2022-05-03] MEDS ORDERED: Zofran 4 MG/2 ML VIAL IV ONE (21:52)
[2022-05-03] MEDS ORDERED: Sodium Chloride 0.9% 500 ML 500 ML IV ONE ×2 (21:52→21:54)
[2022-05-03] MEDS ORDERED: MORPHINE SULFATE 4 MG INJ ONE (21:54)
[2022-05-03] MEDS ORDERED: Zofran 4 MG/2 ML VIAL ONE (21:54)
[2022-05-03 21:56] LABS: Absolute Neutrophil Ct (ANC) 4.12 x10^3/uL (1.4-6.9); Basophil (Absolute #) 0.01 x10^3/uL (0-0.4); Eosinophil % 0.3 % (0.00-5.0); Eosinophil (Absolute #) 0.02 x10^3/uL (0-0.5); Hemoglobin 12.1 g/dL (12.0-16.0); Lymphocyte (Absolute #) 1.23 x10^3/uL (1.0-4.6); Lymphocytes % 19.1 % (24.0-44.0); Mean Cell Volume 85.5 fL (78-100); Mean Corpuscular Hemoglobin 28.7 pg (26-32); Mean Corpuscular Hgb Concent. 33.6 g/dL (32-36); Mean Platelet Volume 11.6 fL (7.5-11.0); Monocyte (Absolute #) 1.06 x10^3/uL (0.0-1.3); Monocytes % 16.4 % (0.0-12.0); Neutrophil % 63.8 % (36.0-66.0); Platelet Count 161 x10^3/uL (150-450); Red Blood Count 4.21 x10^6/uL (4.1-5.4); Red Cell Distribution Width 15.4 % (11.5-14.0); White Blood Count 6.5 x10^3/uL (4.0-10.5)
--- NOTE | 2022-05-03 21:57 | ERPHSYRPT ---
- History of Present Illness Time Seen by Provider: 05/03/22 21:11 Historian: patient Exam Limitations: no limitations Patient Subjective Stated Complaint: feeling sick x2-3 days, nausea and abd pain Triage Nursing Assessment: Pt arrived back into ER via wheelchair, pt c/o not feeling good x3 days. Pt c/o abd pain and nausea, denies any vomiting or diarrhea. Abd soft with active bs x4 quad, mild tenderness on palpation, c/o flank pain. Physician History: 76-year-old female with a history of coronary artery disease status post stenting, hypertension, hyperlipidemia presented in the ER with chief complaint of generalized abdominal pain for the last 4 days with associated nausea and dry heaving without vomiting. Patient also report having constipation. No fever or chills reported. Feels weak fatigued tired and dehydrated because she is not able to eat or drink well. Timing/Duration: day(s) (4), gradual onset, worse Activities at Onset: rest Quality: cramping Abdominal Pain Onset Location: generalized abdomen Pain Radiation: no radiation Severity of Pain-Max: moderate Severity of Pain-Current: moderate Modifying Factors: Improves With: nothing Associated Symptoms: nausea Allergies/Adverse Reactions: cefaclor [From Ceclor] Allergy (Unknown, Verified 05/03/22 21:32) swelling,rash amoxicillin [Amoxicillin] Allergy (Verified 05/03/22 21:32) swelling,rash Home Medications: Amitriptyline HCl 25 mg [Amitriptyline 25 mg Tablet] 25 mg PO HS 06/09/12 [History] Duloxetine HCl [Cymbalta] 60 mg PO HS 06/09/12 [History] Pravastatin Sodium [Pravachol 20 MG] 20 mg PO HS 06/09/12 [History] Clopidogrel Bisulfate [PLAVIX Tablet] 75 mg PO UD 09/13/14 [History] Dexlansoprazole [Dexilant] 1 tab PO DAILY 09/13/14 [History] Metoprolol Tartrate 25 mg [Lopressor 25MG Tab] 1 tab PO BID 09/13/14 [History] Nitroglycerin 0.4 mg (Ed) [Nitrostat 0.4 MG (ED)] 0.4 mg SL Q5MIN PRN MR X 3 PRN 12/05/20 [History] Ezetimibe 10 mg [Zetia 10 MG] 1 tab PO HS 01/28/22 [History] Hx Tetanus, Diphtheria Vaccination/Date Given: No Hx Influenza Vaccination/Date Given: No Hx Pneumococcal Vaccination/Date Given: Yes Immunizations Up to Date: No Travel Risk - International Travel Have you traveled outside of the country in past 3 weeks: No - Coronavirus Screening Are you exhibiting any of the following symptoms?: Yes Symptoms: Cough: New Onset, Headaches/Body Aches/Fatigue Close contact with a COVID-19 positive Pt in past 14-21 Days: No - Vaccine Status Have you recieved a Covid-19 vaccination: Yes Communication Instructor: Moderna - Vaccination Dates Date of 2cond Vaccination (if applicable): . - Review of Systems Constitutional: Fatigue, Weakness Eyes: No Symptoms Ears, Nose, & Throat: No Symptoms Respiratory: No Symptoms Cardiac: No Symptoms Abdominal/Gastrointestinal: Abdominal Pain, Nausea, Constipation Genitourinary Symptoms: No Symptoms Musculoskeletal: No Symptoms Skin: No Symptoms Neurological: No Symptoms Psychological: No Symptoms Endocrine: No Symptoms Hematologic/Lymphatic: No Symptoms Immunological/Allergic: No Symptoms - Past Medical History Pertinent Past Medical History: Yes Neurological History: No Pertinent History ENT History: No Pertinent History Cardiac History: High Cholesterol, Hypertension, Other Respiratory History: No Pertinent History Endocrine Medical History: No Pertinent History Musculoskeletal History: Fibromyalgia GI Medical History: Esophageal Disorder, Gallbladder Disease, Hernia, Pancreatitis, Other History: No Pertinent History Psycho-Social History: No Pertinent History Female Reproductive Disorders: No Pertinent History Other Medical History: hiatal hernia - Past Surgical History Past Surgical History: Yes Neuro Surgical History: No Pertinent History Cardiac: Cardiac Catheterization, Cardiac Stent Respiratory: No Pertinent History Gastrointestinal: Appendectomy, Cholecystectomy Genitourinary: No Pertinent History Musculoskeletal: Orthopedic Surgery Female Surgical History: Hysterectomy Other Surgical History: Right shoulder; rods and screws - Social History Smoking Status: Former smoker How long have you smoked: 15 Exposure to second hand smoke: No Drug Use: none Patient Lives Alone: No - Nursing Vital Signs Nursing Vital Signs: Initial Vital Signs Temperature 97.4 F 05/03/22 21:18 Pulse Rate 64 05/03/22 21:18 Respiratory Rate 20 05/03/22 21:18 Blood Pressure 124/63 05/03/22 21:18 O2 Sat by Pulse Oximetry 98 05/03/22 21:18 Pain Scale Pain Intensity 2 - Physical Exam General Appearance: no apparent distress, alert Eye Exam: PERRL/EOMI Ears, Nose, Throat Exam: normal ENT inspection, TMs normal, pharynx normal, moist mucous membranes Neck Exam: normal inspection, full range of motion Respiratory Exam: normal breath sounds, lungs clear Cardiovascular Exam: regular rate/rhythm, normal heart sounds Gastrointestinal/Abdomen Exam: soft, normal bowel sounds, tenderness (Mild to moderate generalized tenderness with no guarding or rebound) Back Exam: normal inspection Extremity Exam: normal inspection, normal range of motion Neurologic Exam: alert, oriented x 3, cooperative Skin Exam: normal color SpO2 Interpretation: normal SpO2: 98 O2 Delivery: Room Air Ordered Tests: Active Orders 24 hr Category Date Time Status IV Insertion STAT Care 05/03/22 21:52 Active NPO (ED) STAT Care 05/03/22 21:52 Active ABDOMEN AND PELVIS W/0 CONTRAS [CT] Stat Exams 05/03/22 21:52 Taken CBC W DIFF Stat Lab 05/03/22 21:54 Completed CMP Stat Lab 05/03/22 21:54 Completed CULTURE,URINE Stat Lab 05/03/22 22:56 Received LIPASE Stat Lab 05/03/22 21:54 Completed UA W/RFX CULTURE Stat Lab 05/03/22 22:56 Completed Medication Summary Discontinued Medications Generic Name Dose Route Start Last Admin Trade Name Luis PRN Reason Stop Dose Admin Sodium Chloride 500 mls @ 500 mls/hr 05/03/22 21:52 05/03/22 22:57 Sodium Chloride 0.9% 500 Ml IV 05/03/22 22:51 Infused .Q1H ONE Infusion Sodium Chloride Confirm 05/03/22 21:54 Sodium Chloride 0.9% 500 Ml Administered 05/03/22 21:55 Dose 500 mls @ ud IV .STK-MED ONE Morphine Sulfate 4 mg 05/03/22 21:52 05/03/22 21:57 Morphine Sulfate 4 Mg/Ml Injection IV 05/03/22 21:53 4 mg STAT ONE Administration Morphine Sulfate Confirm 05/03/22 21:54 Morphine Sulfate 4 Mg/Ml Injection Administered 05/03/22 21:55 Dose 4 mg .ROUTE .STK-MED ONE Ondansetron HCl 4 mg 05/03/22 21:52 05/03/22 21:57 Ondansetron Hcl 4 Mg/2 Ml Vial IV 05/03/22 21:53 4 mg STAT ONE Administration Ondansetron HCl Confirm 05/03/22 21:54 Ondansetron Hcl 4 Mg/2 Ml Vial Administered 05/03/22 21:55 Dose 4 mg .ROUTE .STK-MED ONE Lab/Rad Data: Laboratory Result Diagrams 05/03/22 21:54 05/03/22 21:54 Laboratory Results 05/03/22 05/03/22 05/03/22 Range/Units 22:56 21:54 21:54 WBC 6.5 (4.0-10.5) x10^3/uL RBC 4.21 (4.1-5.4) x10^6/uL Hgb 12.1 (12.0-16.0) g/dL Hct 36.0 (35-47) % MCV 85.5 (78-100) fL MCH 28.7 (26-32) pg MCHC 33.6 (32-36) g/dL RDW 15.4 H (11.5-14.0) % Plt Count 161 (150-450) x10^3/uL MPV 11.6 H (7.5-11.0) fL Gran % 63.8 (36.0-66.0) % Immature Gran % (Auto) 0.2 (0.00-0.4) % Nucleat RBC Rel Count 0.0 (0.00-0.1) % Eos # (Auto) 0.02 (0-0.5) x10^3/uL Immature Gran # (Auto) 0.01 (0.00-0.03) x10^3u/L Absolute Lymphs (auto) 1.23 (1.0-4.6) x10^3/uL Absolute Monos (auto) 1.06 (0.0-1.3) x10^3/uL Absolute Nucleated RBC 0.00 (0.00-0.01) x10^3u/L Lymphocytes % 19.1 L (24.0-44.0) % Monocytes % 16.4 H (0.0-12.0) % Eosinophils % 0.3 (0.00-5.0) % Basophils % 0.2 (0.0-0.4) % Absolute Granulocytes 4.12 (1.4-6.9) x10^3/uL Basophils # 0.01 (0-0.4) x10^3/uL Sodium 129 L (137-145) mmol/L Potassium 4.2 (3.5-5.1) mmol/L Chloride 99 (98-107) mmol/L Carbon Dioxide 21 L (22-30) mmol/L Anion Gap 13.3 (5-15) MEQ/L BUN 12 (7-17) mg/dL Creatinine 0.73 (0.52-1.04) mg/dL Estimated GFR > 60.0 ML/MIN Glucose 117 H (74-106) mg/dL Calcium 8.8 (8.4-10.2) mg/dL Total Bilirubin 0.50 (0.2-1.3) mg/dL AST 49 H (14-36) U/L ALT 25 (0-35) U/L Alkaline Phosphatase 149 H (38-126) U/L Serum Total Protein 7.8 (6.3-8.2) g/dL Albumin 4.3 (3.5-5.0) g/dL Lipase 106 (23-300) U/L Urinalys Dipstick Clnc MAIN LAB Urine Color YELLOW (YELLOW) Urine Appearance SLIGHTLY CLOUDY (CLEAR) Urine pH 7.5 (5-6) Ur Specific [place] 1.010 (1.005-1.025) POC Urine Protein Conf TRACE (Negative) Urine Ketones SMALL-15 (NEGATIVE) Urine Nitrite NEGATIVE (NEGATIVE) Urine Bilirubin NEGATIVE (NEGATIVE) Urine Urobilinogen 1 (0-1) mg/dL Urine Leukocytes MODERATE (NEGATIVE) Urine WBC (Auto) 16-25 (0-5) /HPF Urine RBC (Auto) 3-5 (0-2) /HPF U Epithel Cells (Auto) RARE (FEW) /HPF Urine Bacteria (Auto) RARE (NEGATIVE) /HPF Urine RBC TRACE-INTACT (0-5) Renny/ul Ur Culture Indicated? YES Urine Glucose NEGATIVE (NEGATIVE) mg/dL - Progress Progress: improved Progress Note: 05/03/22 23:15 36-year-old is evaluated for abdominal pain with nausea and element of cons tipation. She is given fluid and morphine, on reevaluation feeling much better. Has normal white count, grossly unremarkable chemistries. No acute pancreatitis. Does have some element of UTI and given Macrobid. CT abdomen pelvis negative for any acute findings. Discussed signs symptoms of worsening needing return to ER which she seems understanding. Stable for discharge. Counseled pt/family regarding: lab results, diagnosis, rad results - Departure Departure Disposition: Home Clinical Impression: Generalized abdominal pain, UTI (urinary tract infection) Condition: Stable Critical Care Time: No Referrals: HERRERA RIVERO [Primary Care Provider] - Follow Up with PCP/3 days Instructions: Severe Abdominal Pain, Adult (DC) Additional Instructions: Follow-up with primary care for reevaluation. Take Tylenol as needed. Return to ER for worsening abdominal pain, nausea vomiting/fever chills etc. Prescriptions: Nitrofurantoin Macro 100 mg [Macrobid 100MG Capsule] 100 mg PO BID #14 cap
[2022-05-03 22:04] LABS: ALBUMIN 4.3 g/dL (3.5-5.0); ALKALINE PHOSPHATASE 149 U/L (38-126); ANION GAP 13.3 MEQ/L (5-15); BLOOD UREA NITROGEN 12 mg/dL (7-17); CHLORIDE 99 mmol/L (98-107); Calcium 8.8 mg/dL (8.4-10.2); Carbon Dioxide 21 mmol/L (22-30); Creatinine 1 0.73 mg/dL (0.52-1.04); EST GLOMERULAR FILTRATION RATE > 60.0 ML/MIN; Glucose 117 mg/dL (74-106); LIPASE 106 U/L (23-300); Potassium 4.2 mmol/L (3.5-5.1); SGOT/AST 49 U/L (14-36); SGPT/ALT 25 U/L (0-35); SODIUM 129 mmol/L (137-145); Total Protein 7.8 g/dL (6.3-8.2)
[2022-05-03 23:06] VITALS: BP 126/66; PULSE 74
[2022-05-03 23:08] LABS: Bacteria RARE /HPF (NEGATIVE); Epithelial Cells RARE /HPF (FEW)
[2022-05-03 23:10] LABS: Appearance SLIGHTLY CLOUDY (CLEAR); Bilirubin NEGATIVE (NEGATIVE); Glucose NEGATIVE (NEGATIVE); Ketones SMALL-15 (NEGATIVE); Ph 7.5 (5-6); Protein,Urine Dip TRACE (Negative); RBC TRACE-INTACT Ery/ul (0-5)
[2022-05-03 23:11] LABS: Dipstick done @ ? MAIN LAB; Nitrite NEGATIVE (NEGATIVE); Urine Cultured Indicated? YES; Urobilinogen 1 mg/dL (0-1)
[2022-05-03] MEDS ORDERED: Macrobid 100MG Capsule PO ONE (23:14)
[2022-05-03 23:17] VITALS: O2SAT 98
[2022-05-03] MEDS ORDERED: Macrobid 100MG Capsule ONE (23:19)
--- NOTE | 2022-05-04 06:24 | XRAY ---
Indication: Abdomen pain, nausea, and vomiting. History of pancreatitis. Multiple contiguous axial images obtained through the abdomen and pelvis without contrast. Comparison: January 28, 2022 Lung bases again demonstrates tiny left lower lobe calcified granuloma. Heart not enlarged. Again large hiatal hernia with partial intrathoracic stomach. Noncontrasted stomach and bowel loops appear nonobstructed again with small duodenal diverticulum. There remains mild diffuse scattered colonic fecal debris throughout. Again appendectomy, cholecystectomy, hysterectomy, right upper pole renal cyst, and tiny hepatic/splenic calcified granulomas. No free fluid/air. Remaining liver, pancreas, spleen, adrenal glands, kidneys, ureters, and bladder are unremarkable for noncontrast exam. Mild aortoiliac calcifications without AAA. Osseous structures intact again with osteopenia, mild degenerative changes throughout the spine, and bilateral L5 spondylolysis with grade 1 listhesis. Impression: 1. Again large hiatal hernia with partial intrathoracic stomach, mild diffuse fecal stasis, small duodenal diverticulum, small right renal cyst, chronic bony findings, and old granulomatous disease. 2. Remaining CT abdomen/pelvis without contrast exam is again negative. Comment: Preliminary interpretation made by C. No critical discrepancy.
== END 2022-05-03 23:28 | disposition home or self-care (01) ==
LOC: ED 21:10
DX: N39.0 Urinary tract infection, site not specified (principal); R10.84 Generalized abdominal pain; R11.0 Nausea; K59.00 Constipation, unspecified; E78.5 Hyperlipidemia, unspecified; I10 Essential (primary) hypertension; Z79.02 Long term (current) use of antithrombotics/antiplatelets; Z79.899 Other long term (current) drug therapy
CPT/HCPCS: 36000; 36415; 74176; 80053; 81015; 83690; 85025; 87086; 96374; 96375; 99284; J2270; J2405; A9270-GY

== ENCOUNTER 2022-07-24 10:29 | Emergency (ER) | payer MEDICARE ==
[2022-07-24 11:12] LABS: Bacteria RARE /HPF (NEGATIVE); Mucus SLIGHT /HPF (NEGATIVE)
[2022-07-24 11:16] LABS: Appearance CLEAR (CLEAR); Bilirubin SMALL (NEGATIVE); Dipstick done @ ? MAIN LAB; Glucose NEGATIVE (NEGATIVE); Ketones NEGATIVE (NEGATIVE); Nitrite NEGATIVE (NEGATIVE); Protein,Urine Dip NEGATIVE (Negative); RBC NEGATIVE Ery/ul (0-5); Urobilinogen 1 mg/dL (0-1)
[2022-07-24 11:17] LABS: Urine Cultured Indicated? NO
[2022-07-24 11:31] LABS: Absolute Neutrophil Ct (ANC) 5.04 x10^3/uL (1.4-6.9); Basophil (Absolute #) 0.01 x10^3/uL (0-0.4); Eosinophil % 0.2 % (0.00-5.0); Eosinophil (Absolute #) 0.01 x10^3/uL (0-0.5); Hematocrit 38.6 % (35-47); Hemoglobin 12.2 g/dL (12.0-16.0); Lymphocyte (Absolute #) 1.05 x10^3/uL (1.0-4.6); Lymphocytes % 16.1 % (24.0-44.0); Mean Cell Volume 90.8 fL (78-100); Mean Corpuscular Hemoglobin 28.7 pg (26-32); Mean Corpuscular Hgb Concent. 31.6 g/dL (32-36); Mean Platelet Volume 11.2 fL (7.5-11.0); Monocyte (Absolute #) 0.41 x10^3/uL (0.0-1.3); Monocytes % 6.3 % (0.0-12.0); Neutrophil % 76.9 % (36.0-66.0); Platelet Count 183 x10^3/uL (150-450); Red Blood Count 4.25 x10^6/uL (4.1-5.4); Red Cell Distribution Width 15.2 % (11.5-14.0); White Blood Count 6.5 x10^3/uL (4.0-10.5)
--- NOTE | 2022-07-24 11:42 | XRAY ---
Indication: Lower abdomen pain and microhematuria. Multiple contiguous images obtained through the abdomen and pelvis without contrast. Comparison: May 03, 2022 Lung bases remain clear again with incidental tiny left lower lobe calcified granuloma. Heart not enlarged. Again large hernia with partial intrathoracic stomach. Noncontrasted stomach and bowel loops remain nonobstructed with stable small duodenal diverticulum. There remains mild diffuse scattered colonic fecal debris throughout and minimal sigmoid diverticulosis. Again appendectomy, cholecystectomy, hysterectomy, small right renal cyst, and tiny hepatic/splenic calcified granulomas. No free fluid/air. Remaining liver, pancreas, spleen, adrenal glands, kidneys, ureters, and bladder are unremarkable for noncontrast exam. Again mild scattered aortoiliac calcifications without AAA. Osseous structures intact again with osteopenia, multilevel degenerative spondylosis, and bilateral L5 spondylolysis with grade 1 listhesis. Impression: Stable CT abdomen/pelvis without contrast exam again demonstrating large hiatal hernia with partial intrathoracic stomach, small duodenal diverticulum, mild diffuse fecal stasis, sigmoid diverticulosis, small right renal cyst, chronic bony findings, and old granulomatous disease. No new/acute abnormalities.
[2022-07-24 11:50] LABS: ALBUMIN 4.4 g/dL (3.5-5.0); ALKALINE PHOSPHATASE 103 U/L (38-126); BLOOD UREA NITROGEN 14 mg/dL (7-17); CHLORIDE 103 mmol/L (98-107); Calcium 8.8 mg/dL (8.4-10.2); Carbon Dioxide 26 mmol/L (22-30); Creatinine 1 0.73 mg/dL (0.52-1.04); EST GLOMERULAR FILTRATION RATE > 60.0 ML/MIN; Glucose 100 mg/dL (74-106); LIPASE 121 U/L (23-300); Potassium 4.4 mmol/L (3.5-5.1); SGOT/AST 32 U/L (14-36); SGPT/ALT 22 U/L (0-35); SODIUM 138 mmol/L (137-145); Total Protein 7.6 g/dL (6.3-8.2)
--- NOTE | 2022-07-24 12:09 | ERPHSYRPT ---
- History of Present Illness Time Seen by Provider: 07/24/22 11:10 Historian: patient Exam Limitations: no limitations Patient Subjective Stated Complaint: Pt states "I have had lower abdominal pain on the right side that goes into my back and now it is on my lower left side. I went to [facility] and they told me that I might need a ct but it might take a day or two to get cleared through insurance so I came here to get it done." Triage Nursing Assessment: Pt presented alert and oriented X 3, skin pwd. Pt ambulates with an upright steady gait, able to speak in clear full sentences pt in no apparent respiratory distress. PT resting comfortably on the bed. Physician History: 76-year-old female presented in the ER with chief complaint of lower abdominal pain for the last 2 weeks off-and-on. Patient reports initially she is having pain in the right lower quadrant with some radiation to the back intermittently and now she is having pain on the left side for the last couple of days. Denies constipation diarrhea, nausea or vomiting. No significant aggravating or relieving factors. Currently patient is having minimal pain and does not want any pain medication. Patient was seen at urgent care and is here for further evaluation. Timing/Duration: week(s) (2), gradual onset, worse Activities at Onset: rest Quality: dullness Abdominal Pain Onset Location: RLQ, LLQ Pain Radiation: back Severity of Pain-Max: moderate Severity of Pain-Current: mild Modifying Factors: Worsens With: nothing Associated Symptoms: denies symptoms Previous symptoms: no prior history Allergies/Adverse Reactions: cefaclor [From Ceclor] Allergy (Unknown, Verified 05/03/22 21:32) swelling,rash amoxicillin [Amoxicillin] Allergy (Verified 05/03/22 21:32) swelling,rash clindamycin Adverse Reaction (Intermediate, Verified 07/24/22 10:42) heartburn Home Medications: Amitriptyline HCl 25 mg [Amitriptyline 25 mg Tablet] 25 mg PO HS 06/09/12 [History] Duloxetine HCl [Cymbalta] 60 mg PO HS 06/09/12 [History] Pravastatin Sodium [Pravachol 20 MG] 20 mg PO HS 06/09/12 [History] Clopidogrel Bisulfate [PLAVIX Tablet] 75 mg PO UD 09/13/14 [History] Dexlansoprazole [Dexilant] 1 tab PO DAILY 09/13/14 [History] Metoprolol Tartrate 25 mg [Lopressor 25MG Tab] 1 tab PO BID 09/13/14 [History] Nitroglycerin 0.4 mg (Ed) [Nitrostat 0.4 MG (ED)] 0.4 mg SL Q5MIN PRN MR X 3 PRN 12/05/20 [History] Ezetimibe 10 mg [Zetia 10 MG] 1 tab PO HS 01/28/22 [History] Hx Tetanus, Diphtheria Vaccination/Date Given: No Hx Influenza Vaccination/Date Given: No Hx Pneumococcal Vaccination/Date Given: Yes Immunizations Up to Date: Yes Travel Risk - International Travel Have you traveled outside of the country in past 3 weeks: No - Coronavirus Screening Are you exhibiting any of the following symptoms?: No Close contact with a COVID-19 positive Pt in past 14-21 Days: No - Vaccine Status Have you recieved a Covid-19 vaccination: Yes 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: [employer] - Vaccination Dates Date of 2cond Vaccination (if applicable): 2020 - Review of Systems Constitutional: No Symptoms Eyes: No Symptoms Ears, Nose, & Throat: No Symptoms Respiratory: No Symptoms Cardiac: No Symptoms Abdominal/Gastrointestinal: Abdominal Pain Genitourinary Symptoms: No Symptoms Musculoskeletal: Back Pain Neurological: No Symptoms Psychological: No Symptoms Hematologic/Lymphatic: No Symptoms Immunological/Allergic: No Symptoms - Past Medical History Pertinent Past Medical History: Yes Neurological History: No Pertinent History ENT History: No Pertinent History Cardiac History: High Cholesterol, Hypertension, Other Respiratory History: No Pertinent History Endocrine Medical History: No Pertinent History Musculoskeletal History: Fibromyalgia GI Medical History: Esophageal Disorder, Gallbladder Disease, Hernia, Pancreatitis, Other History: No Pertinent History Psycho-Social History: No Pertinent History Female Reproductive Disorders: No Pertinent History Other Medical History: hiatal hernia - Past Surgical History Past Surgical History: Yes Neuro Surgical History: No Pertinent History Cardiac: Cardiac Catheterization, Cardiac Stent Respiratory: No Pertinent History Gastrointestinal: Appendectomy, Cholecystectomy Genitourinary: No Pertinent History Musculoskeletal: Orthopedic Surgery Female Surgical History: Hysterectomy Other Surgical History: Right shoulder; rods and screws - Social History Smoking Status: Former smoker How long have you smoked: 15 Exposure to second hand smoke: No Drug Use: none Patient Lives Alone: No - Nursing Vital Signs Nursing Vital Signs: Initial Vital Signs Temperature 97.8 F 07/24/22 10:34 Pulse Rate 75 07/24/22 10:34 Respiratory Rate 18 07/24/22 10:34 Blood Pressure 147/82 07/24/22 10:34 O2 Sat by Pulse Oximetry 98 07/24/22 10:34 Pain Scale Pain Intensity 6 - Physical Exam General Appearance: no apparent distress, alert Eye Exam: PERRL/EOMI Ears, Nose, Throat Exam: normal ENT inspection Neck Exam: normal inspection, supple, full range of motion Respiratory Exam: normal breath sounds, lungs clear Cardiovascular Exam: regular rate/rhythm, normal heart sounds Gastrointestinal/Abdomen Exam: soft, normal bowel sounds, tenderness (Minimal discomfort to deep palpation left lower quadrant) Back Exam: normal inspection Extremity Exam: normal inspection, normal range of motion Neurologic Exam: alert, oriented x 3, cooperative Skin Exam: normal color SpO2 Interpretation: normal SpO2: 98 O2 Delivery: Room Air Lab/Rad Data: Laboratory Result Diagrams 07/24/22 11:30 07/24/22 11:30 Laboratory Results 07/24/22 07/24/22 07/24/22 Range/Units 11:30 11:30 10:50 WBC 6.5 (4.0-10.5) x10^3/uL RBC 4.25 (4.1-5.4) x10^6/uL Hgb 12.2 (12.0-16.0) g/dL Hct 38.6 (35-47) % MCV 90.8 (78-100) fL MCH 28.7 (26-32) pg MCHC 31.6 L (32-36) g/dL RDW 15.2 H (11.5-14.0) % Plt Count 183 (150-450) x10^3/uL MPV 11.2 H (7.5-11.0) fL Gran % 76.9 H (36.0-66.0) % Immature Gran % (Auto) 0.3 (0.00-0.4) % Nucleat RBC Rel Count 0.0 (0.00-0.1) % Eos # (Auto) 0.01 (0-0.5) x10^3/uL Immature Gran # (Auto) 0.02 (0.00-0.03) x10^3u/L Absolute Lymphs (auto) 1.05 (1.0-4.6) x10^3/uL Absolute Monos (auto) 0.41 (0.0-1.3) x10^3/uL Absolute Nucleated RBC 0.00 (0.00-0.01) x10^3u/L Lymphocytes % 16.1 L (24.0-44.0) % Monocytes % 6.3 (0.0-12.0) % Eosinophils % 0.2 (0.00-5.0) % Basophils % 0.2 (0.0-0.4) % Absolute Granulocytes 5.04 (1.4-6.9) x10^3/uL Basophils # 0.01 (0-0.4) x10^3/uL Sodium 138 (137-145) mmol/L Potassium 4.4 (3.5-5.1) mmol/L Chloride 103 (98-107) mmol/L Carbon Dioxide 26 (22-30) mmol/L Anion Gap 13.0 (5-15) MEQ/L BUN 14 (7-17) mg/dL Creatinine 0.73 (0.52-1.04) mg/dL Estimated GFR > 60.0 ML/MIN Glucose 100 (74-106) mg/dL Calcium 8.8 (8.4-10.2) mg/dL Total Bilirubin 0.50 (0.2-1.3) mg/dL AST 32 (14-36) U/L ALT 22 (0-35) U/L Alkaline Phosphatase 103 (38-126) U/L Serum Total Protein 7.6 (6.3-8.2) g/dL Albumin 4.4 (3.5-5.0) g/dL Lipase 121 (23-300) U/L Urinalys Dipstick Clnc MAIN LAB Urine Color YELLOW (YELLOW) Urine Appearance CLEAR (CLEAR) Urine pH 6.0 (5-6) Ur Specific [place] 1.020 (1.005-1.025) POC Urine Protein Conf NEGATIVE (Negative) Urine Ketones NEGATIVE (NEGATIVE) Urine Nitrite NEGATIVE (NEGATIVE) Urine Bilirubin SMALL A (NEGATIVE) Urine Urobilinogen 1 A (0-1) mg/dL Urine Leukocytes NEGATIVE (NEGATIVE) Urine WBC (Auto) 3-5 A (0-5) /HPF Urine RBC (Auto) 3-5 A (0-2) /HPF U Epithel Cells (Auto) NONE (FEW) /HPF Urine Bacteria (Auto) RARE (NEGATIVE) /HPF Urine RBC NEGATIVE (0-5) Renny/ul Calcium Oxalate Crystal 51-99 A (NEGATIVE) /HPF Urine Mucus (Auto) SLIGHT A (NEGATIVE) /HPF Ur Culture Indicated? NO Urine Glucose NEGATIVE (NEGATIVE) mg/dL - Progress Progress: unchanged Progress Note: 07/24/22 12:37 She is offered pain medication which she refused. Patient is not in any distress at all. As negative acute abdomen work-up including CT abdomen pelvis for any acute finding. Does have some element of constipation, recommended stool softener/MiraLAX. Discussed signs symptoms of worsening needing return to ER which she seems understanding. Stable for discharge. Counseled pt/family regarding: lab results, diagnosis, need for follow-up, rad results - Departure Departure Disposition: Home Clinical Impression: Lower abdominal pain, Constipation Condition: Stable Critical Care Time: No Referrals: HERRERA RIVERO [Primary Care Provider] - Follow Up with PCP/3 days Instructions: Severe Abdominal Pain, Adult (DC) Additional Instructions: Use stool softener/MiraLAX regularly. Increase fiber in diet. Follow-up with primary care for reevaluation. Take Tylenol as needed. Return to ER for intractable pain/nausea vomiting/fever or chills etc.
[2022-07-24 12:21] VITALS: BP 127/70; PULSE 68
[2022-07-24 12:38] VITALS: O2SAT 98
== END 2022-07-24 12:51 | disposition home or self-care (01) ==
LOC: ED 10:29
DX: K59.00 Constipation, unspecified (principal); R10.32 Left lower quadrant pain; R10.31 Right lower quadrant pain; E78.5 Hyperlipidemia, unspecified; I10 Essential (primary) hypertension; Z79.02 Long term (current) use of antithrombotics/antiplatelets; Z79.899 Other long term (current) drug therapy
CPT/HCPCS: 36415; 74176; 80053; 81015; 83690; 85025; 99283

== ENCOUNTER 2024-05-30 17:40 | Emergency (ER) | payer MEDICARE ==
[2024-05-30 17:53] VITALS: TEMP 98.7
[2024-05-30] MEDS ORDERED: Zofran 4 MG/2 ML VIAL ONE ×2 (18:17→22:48)
[2024-05-30] MEDS ORDERED: PROTONIX 40 MG IV IV ONE (18:17)
[2024-05-30] MEDS ORDERED: MORPHINE SULFATE 4 MG INJ ONE ×2 (18:18→19:34)
[2024-05-30] MEDS ORDERED: Sodium Chloride 0.9% 1000 ML 1,000 ML ONE (18:18)
[2024-05-30] MEDS: PROTONIX 40 MG IV IV ONE (18:22)
[2024-05-30] MEDS: Sodium Chloride 0.9% 1000 ML 1,000 ML IV SCH (18:23)
[2024-05-30] MEDS: MORPHINE SULFATE 4 MG INJ IV ONE ×2 (18:23→19:35)
[2024-05-30] MEDS: Zofran 4 MG/2 ML VIAL IV ONE ×2 (18:23→22:49)
--- NOTE | 2024-05-30 18:29 | ERPHSYRPT ---
- History of Present Illness Time Seen by Provider: 05/30/24 18:04 Historian: patient Exam Limitations: no limitations Patient Subjective Stated Complaint: pt here for pain to epigastric area,back and abd for a cuple days, vomiting started today, no fever Triage Nursing Assessment: pt alert, moaning out, arrived per wc, dry heaving, resp easy, skin w/d/p. abd soft, chest clear, bs x4 heard, has cast to left wrsit, hand warm, nails beds pink able to move fingers Physician History: 78-year-old female with history of coronary artery disease status post stenting, hypertension, hyperlipidemia, GERD, hiatal hernia, pancreatitis presented in the ER with 2 days history of upper abdominal pain with radiation to the back, moderate to severe sharp, aggravated with oral intake with associated multiple episodes of nonprojectile, nonbilious vomiting with no hematemesis. Denies any chest pain otherwise. No fever or chills reported. No difficulty breathing. Allergies/Adverse Reactions: cefaclor [From Ceclor] Allergy (Unknown, Verified 05/30/24 17:51) swelling,rash amoxicillin [Amoxicillin] Allergy (Verified 05/30/24 17:51) swelling,rash clindamycin Adverse Reaction (Intermediate, Verified 05/30/24 17:51) heartburn Home Medications: Amitriptyline HCl 25 mg [Amitriptyline 25 mg Tablet] 25 mg PO HS 06/09/12 [History] Duloxetine HCl [Cymbalta] 60 mg PO HS 06/09/12 [History] Pravastatin Sodium [Pravachol 20 MG] 20 mg PO HS 06/09/12 [History] Clopidogrel Bisulfate [PLAVIX Tablet] 75 mg PO UD 09/13/14 [History] Dexlansoprazole [Dexilant] 1 tab PO DAILY 09/13/14 [History] Metoprolol Tartrate 25 mg [Lopressor 25MG Tab] 1 tab PO BID 09/13/14 [History] Nitroglycerin 0.4 mg (Ed) [Nitrostat 0.4 MG (ED)] 0.4 mg SL Q5MIN PRN MR X 3 PRN 12/05/20 [History] Ezetimibe 10 mg [Zetia 10 MG] 1 tab PO HS 01/28/22 [History] Hx Tetanus, Diphtheria Vaccination/Date Given: No Hx Influenza Vaccination/Date Given: No Hx Pneumococcal Vaccination/Date Given: Yes Immunizations Up to Date: Yes Travel Risk - International Travel Have you traveled outside of the country in past 3 weeks: No - Emerging Infectious Disease Are you exhibiting symptoms associated with any current EIDs: Yes Symptoms: Abdominal Pain, Vomitting - Review of Systems Constitutional: No Symptoms Eyes: No Symptoms Ears, Nose, & Throat: No Symptoms Respiratory: No Symptoms Cardiac: No Symptoms Abdominal/Gastrointestinal: Abdominal Pain, Nausea, Vomiting Genitourinary Symptoms: No Symptoms Musculoskeletal: No Symptoms Skin: No Symptoms Neurological: No Symptoms Endocrine: No Symptoms Hematologic/Lymphatic: No Symptoms Immunological/Allergic: No Symptoms - Past Medical History Pertinent Past Medical History: Yes Neurological History: No Pertinent History ENT History: No Pertinent History Cardiac History: High Cholesterol, Hypertension, Other Respiratory History: No Pertinent History Endocrine Medical History: No Pertinent History Musculoskeletal History: Fibromyalgia GI Medical History: Esophageal Disorder, Gallbladder Disease, Hernia, Pancreatitis, Other History: No Pertinent History Psycho-Social History: No Pertinent History Female Reproductive Disorders: No Pertinent History Other Medical History: hiatal hernia - Past Surgical History Past Surgical History: Yes Neuro Surgical History: No Pertinent History Cardiac: Cardiac Catheterization, Cardiac Stent Respiratory: No Pertinent History Gastrointestinal: Appendectomy, Cholecystectomy Genitourinary: No Pertinent History Musculoskeletal: Orthopedic Surgery Female Surgical History: Hysterectomy Other Surgical History: Right shoulder; rods and screws,wrist surg 05/2024 - Social History Smoking Status: Former smoker How long have you smoked: 15 Exposure to second hand smoke: No Drug Use: none Patient Lives Alone: No - Social Determinants of Health Will the patient participate in the screening: Declined to provide - Nursing Vital Signs Nursing Vital Signs: Initial Vital Signs Temperature 98.7 F 05/30/24 17:52 Pulse Rate 90 05/30/24 17:52 Respiratory Rate 22 05/30/24 17:52 Blood Pressure 163/82 05/30/24 17:52 O2 Sat by Pulse Oximetry 100 05/30/24 17:52 Pain Scale Pain Intensity 0 - Physical Exam General Appearance: no apparent distress, alert Eye Exam: PERRL/EOMI Ears, Nose, Throat Exam: normal ENT inspection Neck Exam: normal inspection, full range of motion Respiratory Exam: normal breath sounds, lungs clear Cardiovascular Exam: regular rate/rhythm, normal heart sounds Gastrointestinal/Abdomen Exam: soft, normal bowel sounds, tenderness (Upper abdomen), guarding Back Exam: normal inspection, normal range of motion Extremity Exam: normal inspection, normal range of motion Neurologic Exam: alert, oriented x 3, cooperative Skin Exam: normal color SpO2 Interpretation: normal SpO2: 100 O2 Delivery: Room Air - Course EKG Interpreted by Me: RATE (84), Sinus Rhythm, NORMAL AXIS, NORMAL INTERVALS, NORMAL QRS, Non-specific ST Changes Ordered Tests: Active Orders 24 hr Category Date Time Status EKG-ER Only STAT Care 05/30/24 18:13 Active IV Insertion STAT Care 05/30/24 18:13 Active NPO (ED) STAT Care 05/30/24 18:13 Active ABDOMEN AND PELVIS W/0 CONTRAS [CT] Stat Exams 05/30/24 18:45 Completed CHEST WITH CONTRAST [CT] Stat Exams 05/30/24 20:26 Completed CBC W DIFF Stat Lab 05/30/24 18:37 Completed CMP Stat Lab 05/30/24 18:37 Completed CULTURE,URINE Stat Lab 05/30/24 21:48 Received LIPASE Stat Lab 05/30/24 18:37 Completed Lactic Acid Stat Lab 05/30/24 18:13 Completed TROPONIN Q4H Lab 05/30/24 18:37 Completed TROPONIN Q4H Lab 05/30/24 22:15 Completed TROPONIN Q4H Lab 05/31/24 02:15 Ordered UA W/RFX UR CULTURE Stat Lab 05/30/24 21:48 Completed Medication Summary Generic Name Dose Route Start Last Admin Trade Name Freq PRN Reason Stop Dose Admin Sodium Chloride 1,000 mls @ 125 mls/hr 05/30/24 18:15 05/30/24 18:23 Sodium Chloride 0.9% 1000 Ml IV 06/29/24 18:14 125 mls/hr .Q8H BHAVANI Administration Discontinued Medications Generic Name Dose Route Start Last Admin Trade Name Freq PRN Reason Stop Dose Admin Levofloxacin/Dextrose 750 mg in 150 mls @ 100 mls/hr 05/30/24 22:42 05/30/24 22:49 Levofloxacin 750mg/150ml D5w IV 05/31/24 00:11 100 mls/hr STAT STA 100 mls/hr Administration Levofloxacin/Dextrose Confirm 05/30/24 22:46 Levofloxacin 750mg/150ml D5w Administered 05/30/24 22:47 Dose 750 mg in 150 mls @ ud IV .STK-MED ONE Metoclopramide HCl 10 mg 05/30/24 19:33 05/30/24 19:35 Metoclopramide Hcl 10 Mg/2 Ml Vial IV 05/30/24 19:34 10 mg STAT ONE Administration Metoclopramide HCl Confirm 05/30/24 19:34 Metoclopramide Hcl 10 Mg/2 Ml Vial Administered 05/30/24 19:35 Dose 10 mg .ROUTE .STK-MED ONE Morphine Sulfate 4 mg 05/30/24 18:13 05/30/24 18:23 Morphine Sulfate 4 Mg/Ml Injection IV 05/30/24 18:14 4 mg STAT ONE Administration Morphine Sulfate Confirm 05/30/24 18:18 Morphine Sulfate 4 Mg/Ml Injection Administered 05/30/24 18:19 Dose 4 mg .ROUTE .STK-MED ONE Morphine Sulfate 4 mg 05/30/24 19:15 05/30/24 19:35 Morphine Sulfate 4 Mg/Ml Injection IV 05/30/24 19:16 4 mg STAT ONE Administration Morphine Sulfate Confirm 05/30/24 19:34 Morphine Sulfate 4 Mg/Ml Injection Administered 05/30/24 19:35 Dose 4 mg .ROUTE .STK-MED ONE Ondansetron HCl 4 mg 05/30/24 18:13 05/30/24 18:23 Ondansetron Hcl 4 Mg/2 Ml Vial IV 05/30/24 18:14 4 mg STAT ONE Administration Ondansetron HCl Confirm 05/30/24 18:17 Ondansetron Hcl 4 Mg/2 Ml Vial Administered 05/30/24 18:18 Dose 4 mg .ROUTE .STK-MED ONE Ondansetron HCl 4 mg 05/30/24 22:48 05/30/24 22:49 Ondansetron Hcl 4 Mg/2 Ml Vial IV 05/30/24 22:49 4 mg STAT ONE Administration Ondansetron HCl Confirm 05/30/24 22:48 Ondansetron Hcl 4 Mg/2 Ml Vial Administered 05/30/24 22:49 Dose 4 mg .ROUTE .STK-MED ONE Pantoprazole Sodium 40 mg 05/30/24 18:13 05/30/24 18:22 Pantoprazole 40 Mg Vial IV 05/30/24 18:14 40 mg STAT ONE Administration Pantoprazole Sodium Confirm 05/30/24 18:17 Pantoprazole 40 Mg Vial Administered 05/30/24 18:18 Dose 40 mg IV .[facility]-MED ONE Lab/Rad Data: Laboratory Result Diagrams 05/30/24 18:37 05/30/24 18:37 Laboratory Results 05/30/24 05/30/24 05/30/24 Range/Units 22:15 21:48 18:37 WBC (3.98-10.04) x10^3/uL RBC (3.93-5.22) x10^6/uL Hgb (11.2-15.7) g/dL Hct (34.1-44.9) % MCV (79.4-94.8) fL MCH (25.6-32.2) pg MCHC (32.2-35.5) g/dL RDW (11.7-14.4) % Plt Count (182-369) x10^3/uL MPV (9.4-12.3) fL Gran % (34.0-71.1) % Immature Gran % (Auto) (0.001-0.429) % Nucleat RBC Rel Count (0.00-0.2) % Eos # (Auto) (0.04-0.36) x10^3/uL Immature Gran # (Auto) (0.001-0.031) x10^3u/L Absolute Lymphs (auto) (1.18-3.74) x10^3/uL Absolute Monos (auto) (0.24-0.86) x10^3/uL Absolute Nucleated RBC (0.00-0.012) x10^3u/L Lymphocytes % (19.3-51.7) % Monocytes % (4.7-12.5) % Eosinophils % (0.7-5.8) % Basophils % (0.1-1.2) % Absolute Granulocytes (1.56-6.13) x10^3/uL Basophils # (0.01-0.08) x10^3/uL Sodium (135-145) mmol/L Potassium (3.5-5.1) mmol/L Chloride (98-107) mmol/L Carbon Dioxide (22-30) mmol/L Anion Gap (5-15) MEQ/L BUN (7-17) mg/dL Creatinine (0.52-1.04) mg/dL Estimated GFR ML/MIN Glucose (74-106) mg/dL Lactic Acid (0.4-2.0) Calcium (8.4-10.2) mg/dL Total Bilirubin (0.2-1.3) mg/dL AST (14-36) U/L ALT (0-35) U/L Alkaline Phosphatase (38-126) U/L Troponin I < 0.012 < 0.012 (0.000-0.033) ng/mL Serum Total Protein (6.3-8.2) g/dL Albumin (3.5-5.0) g/dL Lipase (23-300) U/L Urine Color Yellow (Yellow) Urine Appearance Cloudy A (Clear) Urine pH 7.5 (4.6-8.0) Ur Specific [place] >=1.030 A (1.005-1.030) Urine Protein Trace A (Negative) Urine Glucose (UA) Negative (Negative) mg/dL Urine Ketones Trace A (Negative) Urine Blood Negative (Negative) Urine Nitrite Negative (Negative) Urine Bilirubin Negative (Negative) Urine Urobilinogen 1.0 A (0.2) mg/dL Ur Leukocyte Esterase Moderate A (Negative) U Hyaline Cast (Auto) 3-5 A (0-2) /LPF Urine Microscopic RBC 0-2 (0-5) /HPF Urine Microscopic WBC 51-100 A (0-5) /HPF Ur Epithelial Cells Rare (None Seen) /HPF Urine Bacteria None Seen (None Seen) /HPF Urine Culture Reflexed YES (NO) 05/30/24 05/30/24 05/30/24 Range/Units 18:37 18:37 18:13 WBC 6.6 (3.98-10.04) x10^3/uL RBC 4.54 (3.93-5.22) x10^6/uL Hgb 13.7 (11.2-15.7) g/dL Hct 40.2 (34.1-44.9) % MCV 88.5 (79.4-94.8) fL MCH 30.2 (25.6-32.2) pg MCHC 34.1 (32.2-35.5) g/dL RDW 13.7 (11.7-14.4) % Plt Count 234 (182-369) x10^3/uL MPV 11.3 (9.4-12.3) fL Gran % 56.8 (34.0-71.1) % Immature Gran % (Auto) 0.2 (0.001-0.429) % Nucleat RBC Rel Count 0.0 (0.00-0.2) % Eos # (Auto) 0.05 (0.04-0.36) x10^3/uL Immature Gran # (Auto) 0.01 (0.001-0.031) x10^3u/L Absolute Lymphs (auto) 2.19 (1.18-3.74) x10^3/uL Absolute Monos (auto) 0.57 (0.24-0.86) x10^3/uL Absolute Nucleated RBC 0.00 (0.00-0.012) x10^3u/L Lymphocytes % 33.1 (19.3-51.7) % Monocytes % 8.6 (4.7-12.5) % Eosinophils % 0.8 (0.7-5.8) % Basophils % 0.5 (0.1-1.2) % Absolute Granulocytes 3.77 (1.56-6.13) x10^3/uL Basophils # 0.03 (0.01-0.08) x10^3/uL Sodium 137 (135-145) mmol/L Potassium 3.9 (3.5-5.1) mmol/L Chloride 106 (98-107) mmol/L Carbon Dioxide 18 L (22-30) mmol/L Anion Gap 17.0 H (5-15) MEQ/L BUN 14 (7-17) mg/dL Creatinine 0.59 (0.52-1.04) mg/dL Estimated GFR 91.6 ML/MIN Glucose 118 H (74-106) mg/dL Lactic Acid 1.5 (0.4-2.0) Calcium 10.0 (8.4-10.2) mg/dL Total Bilirubin 0.70 (0.2-1.3) mg/dL AST 35 (14-36) U/L ALT 27 (0-35) U/L Alkaline Phosphatase 131 H (38-126) U/L Troponin I (0.000-0.033) ng/mL Serum Total Protein 7.5 (6.3-8.2) g/dL Albumin 4.5 (3.5-5.0) g/dL Lipase 236 (23-300) U/L Urine Color (Yellow) Urine Appearance (Clear) Urine pH (4.6-8.0) Ur Specific [place] (1.005-1.030) Urine Protein (Negative) Urine Glucose (UA) (Negative) mg/dL Urine Ketones (Negative) Urine Blood (Negative) Urine Nitrite (Negative) Urine Bilirubin (Negative) Urine Urobilinogen (0.2) mg/dL Ur Leukocyte Esterase (Negative) U Hyaline Cast (Auto) (0-2) /LPF Urine Microscopic RBC (0-5) /HPF Urine Microscopic WBC (0-5) /HPF Ur Epithelial Cells (None Seen) /HPF Urine Bacteria (None Seen) /HPF Urine Culture Reflexed (NO) - Progress Progress: improved Progress Note: 05/30/24 22:43 78-year-old is evaluated in the ER for upper abdominal pain with nausea vomiting since yesterday. She is not able to hold anything down. Feeling weak fatigued tired and dehydrated. Tenderness upper abdomen. Pain 10 out of 10. She is given fluids and symptomatic treatment with pain medications multiple times and on reevaluation pain is somewhat better. Workup showed normal white count, chemistries with mild element of dehydration and normal lactate. EKG is normal sinus rhythm with no acute ischemic changes and negative troponins x 2. Does have UTI and given a dose of Levaquin. I have obtained CT abdomen pelvis without contrast which showed large hiatal hernia with questionable rotation which is further confirmed with CT chest with contrast showing organoaxial rotation of stomach and possible early volvulus formation. Discussed with Dr. Pio Reyes, reviewed history/exam/, CT find ings, do not think patient can be taken care of at [place] or [place] and recommended transfer to higher level of care at . transfer center is paged. Will keep the patient n.p.o. and on fluids. NG intubation would be done. 05/30/24 23:[address] Whitehead surgery weapons officer naval activity for [facility], reviewed history, workup and agreed with transfer. I have shared the results of workup with patient and family and plan of transfer which they understand and agree. 05/31/24 00:[address] with [address] Elliott at [facility] as no beds are available at [facility], reviewed history, workup and agreed with transfer. 05/31/24 00:05 Later on patient and family decided not to go to [place] and wanted to be transferred to [facility]. I have spoken with Dr. Reeves general surgery, reviewed history and workup, recommended transfer to [facility] ER. I have shared information with Dr. Sr ER physician who agreed with transfer. Discussed with : Jennifer (1040pm), Other (Dr. Whitehead surgery [facility]) Counseled pt/family regarding: lab results, diagnosis, rad results Medical Desision Making - Independent Historian Additional History obtained from: Family - Discussion of managment Care discussed with:: specialist (Dr. Pio Fernandez and Dr. Whitehead surgery [facility]) Reviewed:: Test results Agreed on:: Treatment plan Will see patient: in hospital - Diagnostic Testing Diagnostic test were ordered, analyzed, and reviewed by me: Yes Radiological Interpretation: Reviewed by me, Teleradiologist Report - Risk of complications The pt has a mod risk of morbidity or mortality based on: Need for prescription drug management The pt has a high risk of morbidity or mortality based on: Need for major surgery in patient with known risk factors, Decision regarding hospitilization or escalation of hosp level of care - Departure Departure Disposition: Transfer Clinical Impression: Stomach volvulus, Intractable nausea and vomiting Condition: Stable Critical Care Time: Yes Critical Care Time(excluding separately billable procedures): Critical 30-74 mins Referrals: HERRERA RIVERO [Primary Care Provider] - Follow up/PCP as directed
[2024-05-30 18:42] LABS: Absolute Neutrophil Ct (ANC) 3.77 x10^3/uL (1.56-6.13); BASOPHIL % 0.5 % (0.1-1.2); Basophil (Absolute #) 0.03 x10^3/uL (0.01-0.08); Eosinophil % 0.8 % (0.7-5.8); Eosinophil (Absolute #) 0.05 x10^3/uL (0.04-0.36); Hematocrit 40.2 % (34.1-44.9); Hemoglobin 13.7 g/dL (11.2-15.7); IMMATURE GRAN # 0.01 x10^3u/L (0.001-0.031); IMMATURE GRAN % 0.2 % (0.001-0.429); Lymphocyte (Absolute #) 2.19 x10^3/uL (1.18-3.74); Lymphocytes % 33.1 % (19.3-51.7); Mean Cell Volume 88.5 fL (79.4-94.8); Mean Corpuscular Hemoglobin 30.2 pg (25.6-32.2); Mean Corpuscular Hgb Concent. 34.1 g/dL (32.2-35.5); Mean Platelet Volume 11.3 fL (9.4-12.3); Monocyte (Absolute #) 0.57 x10^3/uL (0.24-0.86); Monocytes % 8.6 % (4.7-12.5); Neutrophil % 56.8 % (34.0-71.1); Platelet Count 234 x10^3/uL (182-369); Red Blood Count 4.54 x10^6/uL (3.93-5.22); Red Cell Distribution Width 13.7 % (11.7-14.4); White Blood Count 6.6 x10^3/uL (3.98-10.04)
[2024-05-30 18:56] LABS: ALBUMIN 4.5 g/dL (3.5-5.0); BILIRUBIN,TOTAL 0.7 mg/dL (0.2-1.3); Creatinine 1 0.59 mg/dL (0.52-1.04); EST GLOMERULAR FILTRATION RATE 91.6 ML/MIN; Potassium 3.9 mmol/L (3.5-5.1); Total Protein 7.5 g/dL (6.3-8.2)
[2024-05-30] MEDS ORDERED: Reglan 10 MG/2 ML ONE (19:34)
[2024-05-30] MEDS: Reglan 10 MG/2 ML IV ONE (19:35)
--- NOTE | 2024-05-30 20:12 | XRAY ---
CLINICAL HISTORY: upper abd pain /vomiting COMPARISON: Comparison is made with the previous CT dated 07/24/2022. TECHNIQUE: Non-contrast CT of the abdomen and pelvis was performed, with the following protocol: axial images, and reconstructed coronal and sagittal images. No intravenous contrast was administered. One of the following dose reduction techniques was utilized for this exam: Automated exposure control, adjustment of the mA and/or kV according to patient size, and use of iterative reconstruction. FINDINGS: Scan through the lower chest reveals unremarkable lung bases and heart. Voluminous sliding and paraesophageal hiatal hernia, with elevation of part of the stomach, which is distended and rotated superiorly. More voluminous than in previous study. Abdomen: Liver: Normal in size, shape, and density. Several calcified granulomas in the liver and spleen, without changes. Gallbladder and Biliary System: Cholecystectomy clips. Pancreas: Pancreatic head, body, and tail are visualized and appear normal in size and density. No pancreatic masses or calcifications were noted. Spleen: Normal in size and shape. Stable calcifications in the spleen. Kidneys and Adrenal Glands: Both kidneys are normal in size, shape, and position. Cortical thickness is within normal limits. No renal calculi or hydronephrosis. Cyst of 30 mm in the upper pole of the right kidney, with no changes. Adrenal glands are unremarkable. Pelvis: Urinary Bladder: Normal in contour and wall thickness. No intraluminal lesions. Uterus: Absent according to surgical history. Ovaries: Not visualized, no gross abnormalities noted. Vagina: Normal in contour and wall thickness. Peritoneal and Retroperitoneal Structures: No free fluid or abnormal fluid collections were identified within the abdomen or pelvis. No lymphadenopathy was noted. Bowel: The visualized bowel loops are normal in caliber and appearance. No evidence of bowel obstruction or wall thickening. Diverticula in sigmoid without signs of complication. Bones and Soft Tissues: Decreased bone density and moderate signs of thoracolumbar spondylosis. 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 Lumbar scoliosis convex to the right. IMPRESSION: 1. Partially visualized voluminous hiatal hernia with elevation of the stomach and herniation of its distal body, appears distended and rotated superiorly. More voluminous than in the previous study. Clinical correlation is suggested. 2. CT scan of the chest may be done to evaluate the full extent. Electronically Signed by: Felecia Wu MD. (05/30/2024 20:08:51 EDT)
[2024-05-30 22:03] LABS: Appearance Cloudy (Clear); Bacteria None Seen /HPF (None Seen); Bilirubin Negative (Negative); Blood Negative (Negative); Epithelial Cells Rare /HPF (None Seen); Glucose, Urine Negative (Negative); Ketones Trace (Negative); Leukocyte Esterase Moderate (Negative); Nitrite Negative (Negative); Ph 7.5 (4.6-8.0); Protein,Urine Dip Trace (Negative); RBC 0-2 /HPF (0-5); Specific Gravity >=1.030 (1.005-1.030); WBC 51-100 /HPF (0-5)
--- NOTE | 2024-05-30 22:15 | XRAY ---
CLINICAL HISTORY: epigastric pain COMPARISON: None. TECHNIQUE: Contiguous 3.[address] images of the chest were acquired with the administration of intravenous contrast 80 ml isovue. Coronal and sagittal reconstructions were obtained. One of the following dose reduction techniques was utilized for this exam: Automated exposure control, adjustment of the mA and/or kV according to patient size, and use of iterative reconstruction FINDINGS: Lungs: Bi-basal mild subpleural atelactatic bands were seen. Lungs are otherwise clear with no evidence of consolidation, collapse, or focal lesions. No ground-glass opacities or interstitial changes. No pleural effusion or pleural thickening. Mediastinum: No mediastinal mass or abnormal lymphadenopathy. Normal appearance of the thymus. Hilar Structures: Normal size and configuration, no enlargement. Heart and Great Vessels: Normal heart size and configuration. No pericardial effusion. Normal caliber and course of the thoracic aorta and other great vessels. Esophagus: Mild dilatation of the esophagus in its entire course with air-fluid levels Bones: Degenerative changes in the thoracic spine. Chest Wall: No masses or soft tissue abnormalities. Upper Abdomen: Large sliding hiatus hernia with organoaxial rotation of stomach noted and possible early volvulus formation. Right renal cortical cyst at upper pole, measuring 25 mm. Postcholecystectomy status with prominent CBD, likely due to postsurgical changes. Old calcified granulomas in the liver and spleen. Thyroid: Normal size and morphology. No nodules or masses. IMPRESSION: 1. Large sliding hiatus hernia with organoaxial rotation of stomach and possible early volvulus formation. 2. Mild dilatation of the esophagus in its entire course with air-fluid levels. Electronically Signed by: Felecia Wu MD. (05/30/2024 22:10:38 EDT)
[2024-05-30] MEDS ORDERED: LEVOFLOXACIN 750MG/150ML D5W 750 MG/150 ML BAG IV ONE (22:46)
[2024-05-30] MEDS: LEVOFLOXACIN 750MG/150ML D5W 750 MG/150 ML BAG IV STA (22:49)
[2024-05-31] MEDS ORDERED: MORPHINE SULFATE 4 MG INJ ONE (00:45)
[2024-05-31] MEDS: MORPHINE SULFATE 4 MG INJ IV ONE (00:46)
[2024-05-31 00:59] VITALS: BP 141/78; PULSE 106; RESP 20; O2SAT 96
== END 2024-05-31 01:11 | disposition short-term general hospital (02) ==
LOC: ED 17:40
DX: K31.89 Other diseases of stomach and duodenum (principal); K44.9 Diaphragmatic hernia without obstruction or gangrene; R11.2 Nausea with vomiting, unspecified; R10.10 Upper abdominal pain, unspecified; I10 Essential (primary) hypertension; E78.5 Hyperlipidemia, unspecified; Z79.02 Long term (current) use of antithrombotics/antiplatelets; Z79.899 Other long term (current) drug therapy
CPT/HCPCS: 36000; 36415; 71260; 74176; 80053; 81001; 83605; 83690; 84484; 85025; 87086; 93005; 96360; 96374; 96375; 96376; 99285; 99291; J1956; J2270; J2405